=== PATIENT | female | born 1970 | race Caucasian/White ===

== ENCOUNTER 2016-08-19 11:01 | Inpatient (IN) ==
--- NOTE | 2016-08-19 11:22 | Emergency Department Note ---
Disposition Clinical Impression: Morbid obesity with BMI of 50.0-59.9, adult, Congestive heart failure Disposition: Admitted As Inpatient Condition: Good Time of Disposition: 13:18 (cedricmiguel robles) SOB HPI - General Chief Complaint: ED Shortness of Breath/Dyspnea Stated Complaint: GARY Time Seen by Provider: 08/19/16 11:08 Source: patient, EMS Mode of arrival: ambulatory Limitations: physical limitation Nursing Notes Reviewed: Yes Vital Signs Reviewed: Yes - History of Present Illness 46-year-old female increased shortness of breath despite being on BiPAP/CPAP at home states that she is nervous she is anxious she has had overt cough and congestion states that they can either a fpc now I just cannot deal with it anymore she denies diarrhea melena hematochezia or hematemesis she is a decreased activity she denies any rashes or lesions Pt Subjective Complaint: shortness of breath Onset (ago): day(s) Context: other (Chronic dyspnea has recurrent episodes seem frequently in the emergency room) Severity: moderate Consistency/Duration: constant Improves with: oxygen, bronchodilators, upright position Worsens with: nothing Known history of: COPD, asthma, congestive heart failure Treatment prior to arrival: oxygen Cough present: Yes Cough Description: Involuntary, Non-Productive, Weak, Wheezy Cough Frequency: Intermittent Sputum production: No - Related Data Home Medications Medication Instructions Recorded Confirmed Omeprazole [PriLOSEC] 20 mg PO DAILY 02/23/16 06/28/16 Oxygen 3 l NS AD 02/23/16 06/28/16 Potassium Chloride [K-Tab ER] 10 meq PO BID 02/23/16 06/28/16 Previous Rx's Medication Instructions Recorded Albuterol Neb [Proventil Neb] 2.5 mg IH Q2H PRN #60 vial.neb 01/01/16 Allopurinol [Zyloprim 100 MG] 400 mg PO DAILY #120 tablet 01/01/16 Nicotine Patch [Nicoderm] 14 mg TD DAILY #28 patch.td24 01/01/16 HYDROcodone/Acet 5/325 mg [[place] 1 tab PO Q4HR PRN #42 tablet 02/26/16 5-325 mg] MOM Conc [MILK OF MAGNESIA conc] 10 ml PO DAILY PRN #300 ud.liq 02/26/16 Magnesium Oxide [Mag-Ox] 400 mg PO BID 30 Days 02/26/16 Nystatin OINT [Mycostatin] 1 appl TP QID 21 Days 02/26/16 Sennosides/Docusate Sodium [Senna 2 each PO DAILY 30 Days 02/26/16 Plus] Budesonide/Formoterol 160/4.5 1 puff IH BIDR #1 hfa.aer.ad 04/16/16 [Symbicort 160/4.5] Bumetanide [Bumex] 1.5 mg PO BIDDIURETIC #90 tablet 05/28/16 Digoxin [Lanoxin] 0.25 mg PO DAILY #30 tablet 05/28/16 Metformin HCl [Glucophage] 1,000 mg PO BID #60 tablet 05/28/16 Metolazone [Zaroxolyn] 5 mg PO DAILY #30 tablet 05/28/16 Metoprolol [Lopressor] 25 mg PO BID #60 tablet 05/28/16 Montelukast [Singulair] 10 mg PO DAILY #30 tablet 05/28/16 Theophylline Anhydrous [Theodur] 300 mg PO BID #60 tab.er.12h 05/28/16 Tiotropium [Spiriva] 18 mcg IH DAILY #30 inh 05/28/16 Allergies Allergy/AdvReac Type Severity Reaction Status Date / Time No Known Allergies Allergy Verified 04/14/16 22:08 All systems ED: reviewed and negative except as stated. Constitutional: Reports: weakness. Denies: fever, chills Eyes: Denies: vision change ENT ED: Denies: ear pain Cardiovascular: Reports: palpitations, dyspnea on exertion, orthopnea. Denies: chest pain Respiratory: Reports: cough, dyspnea, wheezes Gastrointestinal: Denies: abdominal pain, nausea, vomiting Genitourinary: Denies: urgency Musculoskeletal: Denies: back pain Integumentary: Denies: rash Neurological: Denies: headache Psychiatric: Denies: anxiety Endocrine: Denies: fatigue Hematological/Lymphatic: Denies: easy bleeding Allergic/Immunologic: Denies: facial swelling Past Medical History - Past Medical History Attestation: Yes The following information was validated with the patient. Source: patient, old records reviewed, nursing notes reviewed Medical history: Reports: arthritis, cardiomyopathy, CHF, COPD, diabetes, GERD, hypertension, osteoporosis, peripheral artery disease, venous stasis Surgical history: Reports: herniorrhaphy, other Psychiatric history: Reports: anxiety, depression PRINT BUYER history: Reports: no PRINT BUYER history - Social History Smoking Status: Former smoker Smokeless Tobacco Status: No Alcohol use: Reports: none Drug use: Reports: none Physical Exam - General Limitations: physical limitation General appearance: alert, in no apparent distress, anxious, obese - Head Head exam: atraumatic, normocephalic, normal inspection - Eye Eye exam: Present: normal appearance, PERRL, EOMI - ENT ENT exam: normal exam, normal oropharynx, mucous membranes moist, TM's normal bilaterally, normal external ear exam - Neck Neck exam: Present: normal inspection, full ROM, trachea midline - Chest Chest inspection: Present: normal inspection, symmetric chest wall rise - Respiratory Respiratory exam: Present: normal lung sounds bilaterally - Cardiovascular Cardiovascular exam: Present: regular rate, normal rhythm, normal heart sounds - Abdominal Exam Abdominal exam: Present: soft, Non-Tender, normal bowel sounds - Extremities Exam Extremities exam: Present: normal inspection, full ROM, normal capillary refill , other (morbid obesity) - Expanded Lower Extremity Exam Neurovascular/Tendon exam: Present: normal capillary refill, normal fine/light touch Gait: observed and normal - Back Exam Back exam: Present: normal inspection, full ROM. Absent: muscle spasm - Neurological Exam Neurological exam: Present: alert, oriented X3, CN II-XII intact - Psychiatric Psychiatric exam: Present: normal affect, normal mood - Skin Skin exam: Present: warm, dry, intact, normal color Course Course Narrative: Patient was seen and examined patient was placed in a nursing care facility with contacted social work specialist will discuss further with social work specialist in regards to placement she will need at least his therapy and occupational therapy at baseline in addition to this ER for increasing shortness of breath and dyspnea is being evaluated this time Vital Signs Temperature 99.1 F 08/19/16 11:03 Pulse Rate 98 08/19/16 11:03 Respiratory Rate 16 08/19/16 11:03 Blood Pressure 152/100 08/19/16 11:03 O2 Sat by Pulse Oximetry 93 L 08/19/16 11:03 Temperature 99.1 F 08/19/16 11:03 Pulse Rate 100 08/19/16 13:21 Respiratory Rate 18 08/19/16 13:21 Blood Pressure 149/86 08/19/16 13:21 O2 Sat by Pulse Oximetry 95 08/19/16 13:21 Oxygen Delivery Oxygen Delivery Nasal Cannula Shortness of Breath/Dyspnea - Differential Diagnosis Likely: acute exacerbation of chronic obstructive airways disease, congestive heart failure, pneumonia - Medical Records Medical records reviewed: Yes I reviewed the patient's medical records. - Lab Data Lab results reviewed: Yes I reviewed the patient's lab results. Result diagrams: 08/19/16 11:40 08/19/16 11:40 Lab Results 08/19/16 08/19/16 08/19/16 Range/Units 11:40 11:40 11:40 WBC 8.2 (4.3-11.1) K/mcL RBC 3.64 L (3.82-4.97) M/mcL Hgb 10.1 L (11.5-15.4) g/dL Hct 35.3 (35.3-44.9) % MCV 97.0 D (83.0-100.0) fL MCH 27.7 L (28.0-33.3) pg MCHC 28.6 L (31.6-35.5) g/dL RDW 18.6 H (11.5-14.5) % Plt Count 180 (140-400) K/mcL MPV 10.7 (9.4-12.4) fL Immature Gran % 0.2 (0-4) % Seg Neutrophils % 77.9 % Lymphocytes % 15.0 % Monocytes % 5.9 % Eosinophils % 0.5 % Basophils % 0.5 % Neutrophils # 6.4 (1.6-8.9) K/mcL Lymphocytes # 1.2 (0.6-4.6) K/mcL Monocytes # 0.5 (0.0-1.3) K/mcL Eosinophils # 0.0 (0.0-0.6) K/mcL Basophils # 0.0 (0.0-0.2) K/mcL Platelet Estimate Normal (Normal) Hypochromasia Present A (Not Present) Anisocytosis 1+ A (Not Present) PT 14.6 H (9.4-12.1) Seconds INR 1.3 APTT 34.3 (26.0-36.0) Seconds Sodium 146 H (136-145) mEq/L Potassium 3.5 (3.5-4.5) mEq/L Chloride 88 L (98-109) mEq/L Carbon Dioxide 49 H* (19-29) mEq/L BUN 12 (7-20) mg/dL Creatinine 0.71 (0.57-1.11) mg/dL Est GFR ( Amer) > 60 (> 60) Est GFR (Non-Af Amer) > 60 (> 60) BUN/Creatinine Ratio 17 (6-26) Glucose 145 H (70-99) mg/dL Calculated Osmolality 304 H (280-300) Calcium 9.5 (8.6-10.8) mg/dL Troponin I (0-0.03) ng/mL B-Natriuretic Peptide (0-100) pg/mL 08/19/16 08/19/16 Range/Units 11:40 11:40 WBC (4.3-11.1) K/mcL RBC (3.82-4.97) M/mcL Hgb (11.5-15.4) g/dL Hct (35.3-44.9) % MCV (83.0-100.0) fL MCH (28.0-33.3) pg MCHC (31.6-35.5) g/dL RDW (11.5-14.5) % Plt Count (140-400) K/mcL MPV (9.4-12.4) fL Immature Gran % (0-4) % Seg Neutrophils % % Lymphocytes % % Monocytes % % Eosinophils % % Basophils % % Neutrophils # (1.6-8.9) K/mcL Lymphocytes # (0.6-4.6) K/mcL Monocytes # (0.0-1.3) K/mcL Eosinophils # (0.0-0.6) K/mcL Basophils # (0.0-0.2) K/mcL Platelet Estimate (Normal) Hypochromasia (Not Present) Anisocytosis (Not Present) PT (9.4-12.1) Seconds INR APTT (26.0-36.0) Seconds Sodium (136-145) mEq/L Potassium (3.5-4.5) mEq/L Chloride (98-109) mEq/L Carbon Dioxide (19-29) mEq/L BUN (7-20) mg/dL Creatinine (0.57-1.11) mg/dL Est GFR ( Amer) (> 60) Est GFR (Non-Af Amer) (> 60) BUN/Creatinine Ratio (6-26) Glucose (70-99) mg/dL Calculated Osmolality (280-300) Calcium (8.6-10.8) mg/dL Troponin I 0.01 (0-0.03) ng/mL B-Natriuretic Peptide 739 H (0-100) pg/mL - Radiology Data Radiology results reviewed: Yes I reviewed the patient's radiology results. One view portal chest x-ray as interpreted by myself shows cardiomegaly with congestive heart failure noted with minor infiltrates in the perihilar region as interpreted by myself without the assistance of radiology - EKG Data EKG attestation: Yes I reviewed and interpreted this EKG. EKG results narrative: Rhythm NSR RBBB Heart Rate 97 GA 188 QRS 127 QT 371 Axes 12 Critical Care Time Critical Care Time: No
[2016-08-19 11:45] LABS: Basophils % 0.5 %; Eosinophils % 0.5 %; Hematocrit 35.3 % (35.3-44.9); Hemoglobin 10.1 g/dL (11.5-15.4); Immature Granulocytes % 0.2 % (0-4); Lymphocytes # 1.2 K/mcL (0.6-4.6); Mean Corpuscular HGB Conc 28.6 g/dL (31.6-35.5); Mean Corpuscular Hemoglobin 27.7 pg (28.0-33.3); Mean Platelet Volume 10.7 fL (9.4-12.4); Monocytes # 0.5 K/mcL (0.0-1.3); Monocytes % 5.9 %; Neutrophils # 6.4 K/mcL (1.6-8.9); Platelet Count 180 K/mcL (140-400); Red Blood Count 3.64 M/mcL (3.82-4.97); Red Cell Distribution Width 18.6 % (11.5-14.5); Segmented Neutrophils % 77.9 %
[2016-08-19 11:51] LABS: INR 1.3; Prothrombin Time 14.6 Seconds (9.4-12.1)
[2016-08-19 11:53] LABS: Activated Partial Thrombo Time 34.3 Seconds (26.0-36.0)
[2016-08-19 12:01] LABS: BUN/Creatinine Ratio 17 (6-26); Blood Urea Nitrogen 12 mg/dL (7-20); Calcium 9.5 mg/dL (8.6-10.8); Chloride 88 mEq/L (98-109); Glucose 145 mg/dL (70-99); Osmolality,Calculated 304 (280-300); Potassium 3.5 mEq/L (3.5-4.5); Sodium 146 mEq/L (136-145); eGFR For African Americans > 60 (> 60); eGFR For Non-African Americans > 60 (> 60)
[2016-08-19 12:04] LABS: Carbon Dioxide 49 mEq/L (19-29)
[2016-08-19 12:27] LABS: Anisocytosis 1+ (Not Present); Hypochromasia Present (Not Present); Platelet Estimate Normal (Normal)
[2016-08-19] MEDS ORDERED: Ibuprofen 800 MG TABLET PO ONE (12:52)
[2016-08-19] MEDS ORDERED: Bumetanide 1 MG/4 ML VIAL IVP ONE (13:06)
[2016-08-19] MEDS ORDERED: Ipratropium/Albuterol Neb 3 ML IH ONE (13:24)
--- NOTE | 2016-08-19 14:36 | Electrocardiograph Report ---
[facility] Test Date: 2016-08-19 Pat Name: Kathy Munoz Department: [id number] Room: [facility] Gender: F Healthcare Prof: [id number] : 1970 Requested By: Niru Sharma Order Number: [id number] Reading MD: Musa Stephenson MD Measurements Intervals [place] Rate: 97 P: 55 MI: 188 QRS: 12 QRSD: 127 T: 10 QT: 371 QTc: 425 Interpretive Statements SINUS RHYTHM INDETERMINATE AXIS RIGHT BUNDLE BRANCH BLOCK Electronically Signed On 08-19-16 14:34:36 EST by Musa Stephenson MD
[2016-08-19 15:05] LABS: Bilirubin,Urine Negative (Negative); Blood,Urine Small (Negative); Clarity,Urine Clear (Clear); Color,Urine Yellow (Yellow); Glucose,Urine (UA) Normal (Normal); Ketones,Urine Negative (Negative); Leukocyte Esterase,Urine Small (Negative); Nitrite,Urine Negative (Negative); Protein,Urine 30 mg/dL (Neg-Trace); Urobilinogen,Urine Normal (Normal)
[2016-08-19] MEDS ORDERED: Naloxone 0.4 MG/ML INJ IVP PRN (15:13)
[2016-08-19 15:17] LABS: Bacteria,Urine Few per hpf (None-Few); Hyaline Casts,Urine Few per lpf (None-Few); Squamous Epithelial Cell,Urine Few per lpf (None-Few); WBC,Urine 30-50 per hpf (0-3)
[2016-08-19] MEDS: Bumetanide 1 MG/4 ML VIAL IVP SCH (18:14)
[2016-08-19] MEDS ORDERED: MOM Conc 10 ML UD.LIQ PO PRN (21:02)
[2016-08-19] MEDS: Magnesium Oxide 400 MG TABLET PO SCH (21:23)
[2016-08-19] MEDS: Budesonide/Formoterol 160/4.5 MDI IH SCH (21:24)
[2016-08-19] MEDS: Nicotine 14 MG PATCH.TD24 TD SCH (21:24)
[2016-08-19] MEDS: Albuterol 2.5 MG/3 ML NEBULIZER IH PRN (21:24)
[2016-08-19] MEDS: *HR* HYDROcodone/Acet 5/325 mg TABLET PO PRN (21:30)
[2016-08-19] MEDS: ALLOPURINOL PO SCH (21:32)
[2016-08-20] MEDS: *HR* HYDROcodone/Acet 5/325 mg TABLET PO PRN ×5 (03:40→22:32)
[2016-08-20 03:41] LABS: Basophils % 0.4 %; Eosinophils # 0.1 K/mcL (0.0-0.6); Eosinophils % 1.3 %; Hematocrit 31.7 % (35.3-44.9); Hemoglobin 9.2 g/dL (11.5-15.4); Immature Granulocytes % 0.4 % (0-4); Lymphocytes # 1.3 K/mcL (0.6-4.6); Lymphocytes % 18.5 %; Mean Corpuscular Volume 96.6 fL (83.0-100.0); Mean Platelet Volume 11.5 fL (9.4-12.4); Monocytes # 0.5 K/mcL (0.0-1.3); Monocytes % 6.3 %; Neutrophils # 5.3 K/mcL (1.6-8.9); Platelet Count 169 K/mcL (140-400); Red Blood Count 3.28 M/mcL (3.82-4.97); Red Cell Distribution Width 18.6 % (11.5-14.5); Segmented Neutrophils % 73.1 %
[2016-08-20 03:51] LABS: INR 1.3; Prothrombin Time 14.3 Seconds (9.4-12.1)
[2016-08-20 03:54] LABS: Activated Partial Thrombo Time 33.6 Seconds (26.0-36.0)
[2016-08-20 04:01] LABS: BUN/Creatinine Ratio 19 (6-26); Blood Urea Nitrogen 14 mg/dL (7-20); Calcium 9.3 mg/dL (8.6-10.8); Chloride 89 mEq/L (98-109); Glucose 180 mg/dL (70-99); Magnesium 1.8 mg/dL (1.6-2.6); Osmolality,Calculated 307 (280-300); Potassium 3.7 mEq/L (3.5-4.5); Sodium 146 mEq/L (136-145); eGFR For African Americans > 60 (> 60); eGFR For Non-African Americans > 60 (> 60)
[2016-08-20 04:06] LABS: Carbon Dioxide 48 mEq/L (19-29)
[2016-08-20] MEDS: Albuterol 2.5 MG/3 ML NEBULIZER IH PRN ×4 (04:53→22:34)
[2016-08-20 06:48] LABS: Platelet Estimate Normal (Normal)
[2016-08-20] MEDS: *HR* Digoxin 0.25 MG TABLET PO SCH (07:47)
[2016-08-20] MEDS: ALLOPURINOL PO SCH (07:48)
[2016-08-20] MEDS: *HR* Metformin 500 MG TABLET PO SCH ×2 (07:50→21:42)
[2016-08-20] MEDS: Magnesium Oxide 400 MG TABLET PO SCH ×2 (07:50→21:42)
[2016-08-20] MEDS: Sennosides/Docusate Sodium TABLET PO SCH (07:50)
[2016-08-20] MEDS: Nicotine 14 MG PATCH.TD24 TD SCH (07:50)
[2016-08-20] MEDS: Bumetanide 1 MG/4 ML VIAL IVP SCH (08:00)
[2016-08-20] MEDS ORDERED: NON-FORMULARY MEDICATION 1 EACH EACH (Oxygen [Oxygen] 3 L) NS SCH (10:00)
[2016-08-20] MEDS: Tiotropium 18 MCG inhalation IH SCH (10:03)
[2016-08-20] MEDS: Budesonide/Formoterol 160/4.5 MDI IH SCH ×2 (10:04→22:34)
[2016-08-20] MEDS ORDERED: CefTRIAXone 1,000 MG in D5% in Water (Mini-Bag+) 100 ML IVPB ONE (10:30)
[2016-08-20] MEDS: *HR* Promethazine 25 MG/ML VIAL IVP PRN ×2 (12:35→21:42)
[2016-08-20] MEDS ORDERED: Nystatin OINT 15 GM TUBE TP SCH (13:00)
[2016-08-20] MEDS: Bumetanide 1 MG TABLET PO SCH ×2 (13:29→18:13)
[2016-08-20] MEDS: Nystatin POWDER 30 GM BOTTLE TP SCH ×2 (18:14→21:44)
--- NOTE | 2016-08-20 21:51 | Internal Med History&Physical ---
Date of Encounter: 08/20/16 Time of Encounter: 21:43 Assessment and Plan (1) Congestive heart failure Current visit: Yes Status: Chronic She is short of breath high BNP with her IV Bumex follow-up labs Qualifiers: Congestive heart failure type: unspecified congestive heart failure type Congestive heart failure chronicity: acute on chronic Qualified Code(s): I50.9 - Heart failure, unspecified (2) UTI (urinary tract infection) Current visit: Yes Status: Acute Gram-negative rods into ceftriaxone follow-up labs Qualifiers: Urinary tract infection type: site unspecified Hematuria presence: without hematuria Qualified Code(s): N39.0 - Urinary tract infection, site not specified (3) COPD (chronic obstructive pulmonary disease) Current visit: No Status: Acute Continue the neb treatments theophylline Symbicort Qualifiers: Emphysema type: unspecified Qualified Code(s): J43.9 - Emphysema, unspecified (4) Bronchitis Current visit: Yes Status: Acute Coughing up sputum continue the Rocephin (5) Hypercapnia Current visit: Yes Status: Acute She needs to continue using BiPAP whenever she lays down and Nipride benefit her to use it all the time she is not ambulating (6) DM type 2 (diabetes mellitus, type 2) Current visit: Yes Status: Chronic Diabetes seems to be controlled continue metformin Qualifiers: Diabetes mellitus complication status: without complication Diabetes mellitus 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 Munoz is a 46 year old female resented emergency room with increasing shortness of breath, coughing up yellow-green sputum, she reports using neb treatments every hour and still being short of breath. She has had some pain with urination, she feels cool all the time, been nauseated. She has a history of asthma and COPD on 4 L oxygen at home but she reports her 2 sons live the wood burning stove door open which looks smokes in the house. He also smokes cigarettes. She reports having pressure in his maxillary sinuses. He has been weak and fatigued lightheaded, blurred vision, and swollen belly that is makes walking painful she reports her symptoms started about 5 days ago and she has been getting worse. He denies any fevers chills vomiting diarrhea blood in her stool rest of review systems negative. Answer questions addressed her concerns and workup in the emergency room showed normal sinus rhythm with right bundle branch block, a chest x-ray that showed some vasculature consistent with congestive heart failure also concerned about minor infiltrates in the perihilar area ER doctor. The radiologist read it as a stable chest. She had a urine culture that came back with greater than 100,000 gram-negative rods. Initial BNP was 739 which came down to 556 with Bumex her CO2 is 49 and went down to 48. He reports being in Dr. Gonzalez in [place] from 07/19- for respiratory failure. Emergency room she reported willingness to go to an extended care facility. Past Med Surg Social Fam HX - Past Medical History Medical history: arthritis (Worse in the lower back), asthma, cardiomyopathy, CHF, COPD (4 L oxygen), diabetes, GERD, hypertension, osteoporosis, peripheral artery disease, venous stasis, other (Obstructive sleep apnea on BiPAP, gallops , morbid obesity, hypercapnia) Psychiatric history: anxiety, depression - Past Surgical History Surgical History: herniorrhaphy, other - Social History Smoking Status: Former smoker Smokeless Tobacco Status: No Alcohol use: none Drug use: none - Family History Son Adopted: No Family Member Ethnicity: Non- Living Status: Still Living Hx Family Cardiac Disorders: Yes Hx Family Respiratory Disorders: Yes Hx Family Cancer: No Hx Family GI Disorders: No Hx Family Endocrine Disorder: Yes Hx Family Neuromuscular Disorders: No Hx Family Neurologic Disorders: No Hx Family HEENT Disorders: No Hx Family Autoimmune Disorders: No Father Living Status: Hx Family Cardiac Disorders: Yes (enlarged heart) Hx Family Cancer: Yes (Lung and rectal cancer) Hx Family Endocrine Disorder: Yes (diabetic) Mother Living Status: Hx Family Cardiac Disorders: Yes (stents) Hx Family GI Disorders: Yes (GI bleed) Hx Family Endocrine Disorder: Yes (diabetic) Internal Medicine - H&P: Meds Albuterol Neb [Proventil Neb] 2.5 mg IH Q2H PRN #60 vial.neb 01/01/16 [Rx] Allopurinol [Zyloprim 100 MG] 400 mg PO DAILY #120 tablet 01/01/16 [Rx] Nicotine Patch [Nicoderm] 14 mg TD DAILY #28 patch.td24 01/01/16 [Rx] Omeprazole [PriLOSEC] 20 mg PO DAILY 02/23/16 [History] Oxygen 3 l NS AD 02/23/16 [History] Potassium Chloride [K-Tab ER] 10 meq PO BID 02/23/16 [History] HYDROcodone/Acet 5/325 mg [[place] 5-325 mg] 1 tab PO Q4HR PRN #42 tablet [Rx] MOM Conc [MILK OF MAGNESIA conc] 10 ml PO DAILY PRN #300 ud.liq 02/26/16 [Rx] Magnesium Oxide [Mag-Ox] 400 mg PO BID 30 Days 02/26/16 [Rx] Nystatin OINT [Mycostatin] 1 appl TP QID 21 Days 02/26/16 [Rx] Sennosides/Docusate Sodium [Senna Plus] 2 each PO DAILY 30 Days 02/26/16 [Rx] Budesonide/Formoterol 160/4.5 [Symbicort 160/4.5] 1 puff IH BIDR #1 hfa.aer.ad 04/16/16 [Rx] Bumetanide [Bumex] 1.5 mg PO BIDDIURETIC #90 tablet 05/28/16 [Rx] Digoxin [Lanoxin] 0.25 mg PO DAILY #30 tablet 05/28/16 [Rx] Metformin HCl [Glucophage] 1,000 mg PO BID #60 tablet 05/28/16 [Rx] Metolazone [Zaroxolyn] 5 mg PO DAILY #30 tablet 05/28/16 [Rx] Metoprolol [Lopressor] 25 mg PO BID #60 tablet 05/28/16 [Rx] Montelukast [Singulair] 10 mg PO DAILY #30 tablet 05/28/16 [Rx] Theophylline Anhydrous [Theodur] 300 mg PO BID #60 tab.er.12h 05/28/16 [Rx] Tiotropium [Spiriva] 18 mcg IH DAILY #30 inh 05/28/16 [Rx] Allergies No Known Allergies Allergy (Verified 04/14/16 22:08) All Systems PM: A 10-system review of systems was performed and is negative for pertinent findings except as documented above in the HPI. - Constitutional Vitals: Temp Pulse Resp BP Pulse Ox 98.2 F 95 20 114/73 92 L 08/20/16 18:00 08/20/16 18:00 08/20/16 18:00 08/20/16 18:00 08/20/16 18:00 General appearance: Present: A&O X 2 - Head Head exam: Present: atraumatic, normocephalic - Eye Eye exam: Present: PERRL, conjuntiva pink, sclera anicteric Pupils: Present: PERRL - Neck Neck exam general surgery: Present: supple, trachea midline. Absent: lymphadenopathy - Respiratory Respiratory exam: Present: CTAB (But distant breath sounds). Absent: accessory muscle use, rales, rhonchi, wheezes - Cardiovascular Cardiovascular exam: Present: RRR, +S1, +S2. Absent: diastolic murmur, gallop, rubs, systolic murmur - GI/Abdominal GI/Abdominal exam: Present: normal bowel sounds, soft, no peritoneal signs. Absent: distended, tenderness - Extremities Exam Extremities exam: Present: pedal edema (2+), warm. Absent: calf tenderness, cyanotic - Neurological Exam Neurological exam: Present: CN II-XII intact, no focal deficits. Absent: facial droop, speech deficit - Skin Skin exam: Present: dry, intact Internal Med - H&P Results - Labs CBC & Chem 7: 08/20/16 03:30 08/20/16 03:30 Labs: Short CBC 08/20/16 Range/Units 03:30 WBC 7.2 (4.3-11.1) K/mcL Hgb 9.2 L (11.5-15.4) g/dL Hct 31.7 L (35.3-44.9) % Plt Count 169 (140-400) K/mcL Neutrophils # 5.3 (1.6-8.9) K/mcL BMP 08/20/16 03:30 Sodium 146 H Potassium 3.7 Chloride 89 L Carbon Dioxide 48 H* BUN 14 Creatinine 0.75 Glucose 180 H Calcium 9.3 Cardiac Enzymes 08/20/16 Range/Units 03:30 Troponin I 0.01 (0-0.03) ng/mL
[2016-08-21] MEDS ORDERED: Bumetanide 1 MG TABLET PO PRN (01:19)
[2016-08-21] MEDS: *HR* HYDROcodone/Acet 5/325 mg TABLET PO PRN ×4 (04:19→17:27)
[2016-08-21 05:30] LABS: ABG HCO3 52.2 mEQ/L (21-27); ABG PCO2 82 mmHg (35-45); ABG PH 7.41 pH Units (7.32-7.45); ABG PO2 63 mmHg (85-104); ABG TCO2 54.7 mEq/L (20-26)
[2016-08-21 05:31] LABS: ABG Base Excess 23.1 mEq/L (-2.0 to 3.0); ABG Oxygen Saturation 90 % (95-98); Blood Gas BiPAP(E) 12 cm H2O; Blood Gas BiPAP(I) 20 cm H2O; Blood Gas Liter Flow 4 L/MIN
[2016-08-21 05:52] LABS: Basophils % 0.5 %; Eosinophils # 0.1 K/mcL (0.0-0.6); Eosinophils % 1.8 %; Hematocrit 33.1 % (35.3-44.9); Hemoglobin 9.5 g/dL (11.5-15.4); Immature Granulocytes % 0.3 % (0-4); Lymphocytes # 1.5 K/mcL (0.6-4.6); Lymphocytes % 20.4 %; Mean Corpuscular HGB Conc 28.7 g/dL (31.6-35.5); Mean Corpuscular Hemoglobin 27.5 pg (28.0-33.3); Mean Corpuscular Volume 95.9 fL (83.0-100.0); Mean Platelet Volume 12.1 fL (9.4-12.4); Monocytes # 0.4 K/mcL (0.0-1.3); Neutrophils # 5.2 K/mcL (1.6-8.9); Platelet Count 185 K/mcL (140-400); Red Blood Count 3.45 M/mcL (3.82-4.97); Red Cell Distribution Width 18.6 % (11.5-14.5)
[2016-08-21 06:06] LABS: BUN/Creatinine Ratio 18 (6-26); Blood Urea Nitrogen 14 mg/dL (7-20); Calcium 9.7 mg/dL (8.6-10.8); Chloride 85 mEq/L (98-109); Glucose 142 mg/dL (70-99); Osmolality,Calculated 305 (280-300); Potassium 3.7 mEq/L (3.5-4.5); Sodium 146 mEq/L (136-145); eGFR For African Americans > 60 (> 60); eGFR For Non-African Americans > 60 (> 60)
[2016-08-21 06:40] LABS: Carbon Dioxide 47 mEq/L (19-29)
[2016-08-21 07:50] LABS: Anisocytosis 2+ (Not Present); Hypochromasia Present (Not Present); Platelet Estimate Normal (Normal); Polychromasia 1+ (Not Present)
[2016-08-21] MEDS: Albuterol 2.5 MG/3 ML NEBULIZER IH PRN ×4 (08:24→21:14)
[2016-08-21] MEDS: Tiotropium 18 MCG inhalation IH SCH (08:24)
[2016-08-21] MEDS: Budesonide/Formoterol 160/4.5 MDI IH SCH ×2 (08:25→21:14)
[2016-08-21] MEDS: ALLOPURINOL PO SCH (09:19)
[2016-08-21] MEDS: Magnesium Oxide 400 MG TABLET PO SCH ×2 (09:20→23:42)
[2016-08-21] MEDS: *HR* Metformin 500 MG TABLET PO SCH ×2 (09:20→23:44)
[2016-08-21] MEDS: Sennosides/Docusate Sodium TABLET PO SCH (09:21)
[2016-08-21] MEDS: *HR* Digoxin 0.25 MG TABLET PO SCH (09:21)
[2016-08-21] MEDS: Nicotine 14 MG PATCH.TD24 TD SCH (09:22)
[2016-08-21] MEDS: Bumetanide 1 MG/4 ML VIAL IVP SCH ×2 (09:23→17:27)
[2016-08-21] MEDS: *HR* Promethazine 25 MG/ML VIAL IVP PRN ×2 (09:25→18:14)
[2016-08-21] MEDS: Nystatin POWDER 30 GM BOTTLE TP SCH ×4 (12:04→23:44)
--- NOTE | 2016-08-21 18:55 | Internal Med Progress Note ---
Date of Encounter: 08/21/16 Time of Encounter: 18:52 - Assessment and plan (1) Congestive heart failure Current Visit: Yes Status: Chronic Assessment and plan: August 21. Seemed like it is slowly improving her BNP is coming down but she continues to be IV Bumex follow-up BMP and BNP change her to a regular medicine Qualifiers: Congestive heart failure type: unspecified congestive heart failure type Congestive heart failure chronicity: acute on chronic Qualified Code(s): I50.9 - Heart failure, unspecified (2) UTI (urinary tract infection) Current Visit: Yes Status: Acute Assessment and plan: August 21. Continue the Rocephin Qualifiers: Urinary tract infection type: site unspecified Hematuria presence: without hematuria Qualified Code(s): N39.0 - Urinary tract infection, site not specified (3) COPD (chronic obstructive pulmonary disease) Current Visit: No Status: Acute Assessment and plan: August 21. Seems controlled continue the neb treatments, Symbicort, theophylline Qualifiers: Emphysema type: unspecified Qualified Code(s): J43.9 - Emphysema, unspecified (4) Bronchitis Current Visit: Yes Status: Acute Assessment and plan: August 21. Slightly improving continue the Rocephin. (5) Hypercapnia Current Visit: Yes Status: Acute Assessment and plan: August 21. Slight improvement continue the BiPAP and the oxygen (6) DM type 2 (diabetes mellitus, type 2) Current Visit: Yes Status: Chronic Assessment and plan: August 21. 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 Continue BiPAP follow up the BMP (8) Morbid obesity with BMI of 50.0-59.9, adult Current Visit: Yes Status: Chronic Assessment and plan: August 21. She is having abdominal pain because of her obesity will increase the [place] to 10/325. - Time Spent With Patient 25 - 35 minutes - Subjective Interval history: 46-year-old female with a history of morbid obesity, no PDA on 4 L oxygen home, PATRICIO with BiPAP.. She presented to the emergency room with increasing shortness of breath. She is found to have acute bronchitis symptoms copy of a yellow-green sputum. Extremely short of breath. Emergency room her BNP was 739 she was given IV Bumex. She is continuing to need IV Bumex. Her BNP went down to 556 and states to 225. She reports feeling a little less short of breath but her swelling does not seem to have gone down slightly. Her feet have not been elevated above the heart range. Last the nurse to give her pillows at the bedside does not work well. She reports having abdominal pain from the swelling in the abdominal area point on her skin. She reports a 10 out 10 and with the current pain medicine gross about 7 or 8 out 10 and it is hard for her to function. Request an increased dose of narcotic. She is also becoming hypoxic even with oxygen. We will change her to on admission his tongue hypoxia and ongoing need for IV diuretics. Questions answered concerns addressed - Constitutional Vitals: Temp Pulse Resp BP Pulse Ox 98.2 F 94 18 134/65 88 L 08/21/16 15:46 08/21/16 15:46 08/21/16 17:57 08/21/16 15:46 08/21/16 17:57 General appearance: Present: A&O X 2 Exam: General: Alert and oriented, no acute distress Lungs: Clear to auscultation bilaterally without wheezing or crackles, but less distant sounds Heart: Regular rate and rythms without murmer or rubs Abdomen: Soft, large pannus, tender at the bottom skin area Extremities: 2+ edema no redness Internal Medicine: Result - Labs CBC & Chem 7: 08/21/16 04:32 08/21/16 04:32 Labs: Short CBC 08/21/16 Range/Units 04:32 WBC 7.3 (4.3-11.1) K/mcL Hgb 9.5 L (11.5-15.4) g/dL Hct 33.1 L (35.3-44.9) % Plt Count 185 (140-400) K/mcL Neutrophils # 5.2 (1.6-8.9) K/mcL BMP 08/21/16 04:32 Sodium 146 H Potassium 3.7 Chloride 85 L Carbon Dioxide 47 H* BUN 14 Creatinine 0.76 Glucose 142 H Calcium 9.7 - ABG Interpretation ABG results: ABG ABG pH 7.41 pH Units (7.32-7.45) 08/21/16 05:20 ABG pCO2 82 mmHg (35-45) H* 08/21/16 05:20 ABG pO2 63 mmHg (85-104) L 08/21/16 05:20 ABG O2 Saturation 90 % (95-98) L 08/21/16 05:20 PT/INR, D-dimer PT 14.3 Seconds (9.4-12.1) H 08/20/16 03:30 Consult Discharge Plan - Plan Referrals: Silvestre Kurtz, STRUCTURAL IRON WORKER [Primary Care Provider] - 1 week
[2016-08-21] MEDS: *HR* HYDROcodone/Acet 10/325 mg TABLET PO PRN (23:43)
[2016-08-22] MEDS: *HR* Promethazine 25 MG/ML VIAL IVP PRN ×4 (00:07→18:14)
[2016-08-22] MEDS: *HR* HYDROcodone/Acet 10/325 mg TABLET PO PRN ×4 (03:55→22:02)
[2016-08-22 06:53] LABS: Basophils % 0.6 %; Eosinophils # 0.2 K/mcL (0.0-0.6); Eosinophils % 2.1 %; Hematocrit 32.9 % (35.3-44.9); Hemoglobin 9.5 g/dL (11.5-15.4); Immature Granulocytes % 0.6 % (0-4); Lymphocytes # 1.5 K/mcL (0.6-4.6); Lymphocytes % 20.2 %; Mean Corpuscular HGB Conc 28.9 g/dL (31.6-35.5); Mean Corpuscular Hemoglobin 27.5 pg (28.0-33.3); Mean Corpuscular Volume 95.1 fL (83.0-100.0); Mean Platelet Volume 12.1 fL (9.4-12.4); Monocytes # 0.5 K/mcL (0.0-1.3); Monocytes % 6.5 %; Neutrophils # 5.1 K/mcL (1.6-8.9); Platelet Count 193 K/mcL (140-400); Red Blood Count 3.46 M/mcL (3.82-4.97); Red Cell Distribution Width 18.2 % (11.5-14.5)
[2016-08-22 07:09] LABS: BUN/Creatinine Ratio 18 (6-26); Blood Urea Nitrogen 14 mg/dL (7-20); Calcium 9.6 mg/dL (8.6-10.8); Chloride 85 mEq/L (98-109); Glucose 145 mg/dL (70-99); Osmolality,Calculated 305 (280-300); Sodium 146 mEq/L (136-145); eGFR For African Americans > 60 (> 60); eGFR For Non-African Americans > 60 (> 60)
[2016-08-22 07:12] LABS: Carbon Dioxide 46 mEq/L (19-29)
[2016-08-22 07:15] LABS: Anisocytosis 1+ (Not Present); Hypochromasia Present (Not Present)
[2016-08-22] MEDS: Albuterol 2.5 MG/3 ML NEBULIZER IH PRN ×3 (08:34→17:42)
[2016-08-22] MEDS: Budesonide/Formoterol 160/4.5 MDI IH SCH ×2 (08:35→21:12)
[2016-08-22] MEDS: Tiotropium 18 MCG inhalation IH SCH (08:35)
[2016-08-22] MEDS: Bumetanide 1 MG/4 ML VIAL IVP SCH (08:36)
[2016-08-22] MEDS: *HR* Digoxin 0.25 MG TABLET PO SCH (08:37)
[2016-08-22] MEDS: Magnesium Oxide 400 MG TABLET PO SCH ×2 (08:38→22:02)
[2016-08-22] MEDS: *HR* Metformin 500 MG TABLET PO SCH ×2 (08:38→22:03)
[2016-08-22] MEDS: Sennosides/Docusate Sodium TABLET PO SCH (08:39)
[2016-08-22] MEDS: ALLOPURINOL PO SCH (08:39)
[2016-08-22] MEDS: Nicotine 14 MG PATCH.TD24 TD SCH (10:07)
[2016-08-22] MEDS: Nystatin POWDER 30 GM BOTTLE TP SCH ×4 (10:09→22:04)
[2016-08-22] MEDS ORDERED: CefTRIAXone 1,000 MG in D5% in Water (Mini-Bag+) 100 ML IVPB SCH (12:00)
--- NOTE | 2016-08-22 13:45 | Internal Med Progress Note ---
Date of Encounter: 08/22/16 Time of Encounter: 13:38 - Assessment and plan (1) Congestive heart failure Current Visit: Yes Status: Chronic Assessment and plan: August 21. Seemed like it is slowly improving her BNP is coming down but she continues to be IV Bumex follow-up BMP and BNP change her to a regular medicine August 22. Like she got the most benefit from IV Bumex was changed to oral Bumex. Follow up a BMP and a BNP Qualifiers: Congestive heart failure type: unspecified congestive heart failure type Congestive heart failure chronicity: acute on chronic Qualified Code(s): I50.9 - Heart failure, unspecified (2) UTI (urinary tract infection) Current Visit: Yes Status: Acute Assessment and plan: August 21. Continue the Rocephin August 22. She done on Rocephin but because of a possible sinus and all went change her from Rocephin IV to Ceftin 500 twice a day Qualifiers: Urinary tract infection type: site unspecified Hematuria presence: without hematuria Qualified Code(s): N39.0 - Urinary tract infection, site not specified (3) COPD (chronic obstructive pulmonary disease) Current Visit: No Status: Acute Assessment and plan: August 21. Seems controlled continue the neb treatments, Symbicort, theophylline August 22 T neb treatment Symbicort will increase theophylline to 450 mg twice a day follow-up theophylline level Qualifiers: Emphysema type: unspecified Qualified Code(s): J43.9 - Emphysema, unspecified (4) Bronchitis Current Visit: Yes Status: Acute Assessment and plan: August 21. Slightly improving continue the Rocephin. August 22. Change Rocephin to Ceftin (5) Hypercapnia Current Visit: Yes Status: Acute Assessment and plan: August 21. Slight improvement continue the BiPAP and the oxygen August 22. Stable on oxygen and BiPAP (6) DM type 2 (diabetes mellitus, type 2) Current Visit: Yes Status: Chronic Assessment and plan: August 21. Stable continue metformin August 22. We will continue metformin Qualifiers: Diabetes mellitus complication status: without complication Diabetes mellitus alf insulin use: unspecified alf insulin use status Qualified Code(s): E11.9 - Type 2 diabetes mellitus without complications (7) PATRICIO treated with BiPAP Current Visit: Yes Status: Acute Assessment and plan: August 21. Continue BiPAP follow up the BMP August 22. BiPAP (8) Morbid obesity with BMI of 50.0-59.9, adult Current Visit: Yes Status: Chronic Assessment and plan: August 21. She is having abdominal pain because of her obesity will increase the [place] to 10/325. August 22. Has [place] for breakthrough pain throughout the abdominal pannus - Time Spent With Patient 25 - 35 minutes - Subjective Interval history: 46-year-old female with a history of morbid obesity, no PDA on 4 L oxygen home, PATRICIO with BiPAP.. She presented to the emergency room with increasing shortness of breath. She is found to have acute bronchitis symptoms copy of a yellow-green sputum. Extremely short of breath. Emergency room her BNP was 739 she was given IV Bumex. She is continuing to need IV Bumex. Her BNP went down to 556 and states to 225. She reports feeling a little less short of breath but her swelling does not seem to have gone down slightly. Her feet have not been elevated above the heart range. Last the nurse to give her pillows at the bedside does not work well. She reports having abdominal pain from the swelling in the abdominal area point on her skin. She reports a 10 out 10 and with the current pain medicine gross about 7 or 8 out 10 and it is hard for her to function. Request an increased dose of narcotic. She is also becoming hypoxic even with oxygen. We will change her to on admission his tongue hypoxia and ongoing need for IV diuretics. Questions answered concerns addressed August 22. Patient reports shortness of breath is about the same she has been having chest pain from coughing. Her BNP is slightly up to 282 from 275 so she is primarily on the most benefit from IV Bumex. We change it to 2 mg twice a day orally. Her CO2 came down to 46 O2 sats about 90% oxygen goes from 2-4 L. She is on BiPAP, short all last night. She reports having concerns about her sinuses and discussed about his nasal steroid like to try one. She talked about going home because her son has a birthday on August 29. He mentioned it to smoking environment with cigarette smoke and smoking from the wood burning stove. I think to be wiser for her to go to place there is not smoke because of her asthma. If nothing changes she goes back to her previous environment she will come back here she notes this line of thought. 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 Answer questions of some concerns. - Constitutional Vitals: Temp Pulse Resp BP Pulse Ox 97.8 F 88 16 108/71 90 L 08/22/16 11:15 08/22/16 11:15 08/22/16 11:15 08/22/16 11:15 08/22/16 11:15 Exam: General: Alert and oriented, no acute distress Lungs: Clear to auscultation bilaterally without wheezing or crackles but distant breath sounds Heart: Regular rate and rythms without murmer or rubs Abdomen: Soft, nontender, Extremities: no edema, redness Internal Medicine: Result - Labs CBC & Chem 7: 08/22/16 05:04 08/22/16 05:04 Labs: Short CBC 08/22/16 Range/Units 05:04 WBC 7.2 (4.3-11.1) K/mcL Hgb 9.5 L (11.5-15.4) g/dL Hct 32.9 L (35.3-44.9) % Plt Count 193 (140-400) K/mcL Neutrophils # 5.1 (1.6-8.9) K/mcL BMP 08/22/16 05:04 Sodium 146 H Potassium 4.0 Chloride 85 L Carbon Dioxide 46 H* BUN 14 Creatinine 0.76 Glucose 145 H Calcium 9.6 - ABG Interpretation ABG results: ABG ABG pH 7.41 pH Units (7.32-7.45) 08/21/16 05:20 ABG pCO2 82 mmHg (35-45) H* 08/21/16 05:20 ABG pO2 63 mmHg (85-104) L 08/21/16 05:20 ABG O2 Saturation 90 % (95-98) L 08/21/16 05:20 PT/INR, D-dimer PT 14.3 Seconds (9.4-12.1) H 08/20/16 03:30 Consult Discharge Plan - Plan Referrals: Silvestre Kurtz, FLOATING OPERATOR [Primary Care Provider] - 1 week
[2016-08-22] MEDS: Fluticasone Propionate Nasal 50 MCG/SPRAY BOTTLE NS SCH (13:58)
[2016-08-22] MEDS: Cefuroxime PO 250 MG TABLET PO SCH (18:07)
[2016-08-22] MEDS: Bumetanide 1 MG TABLET PO SCH (18:07)
[2016-08-23] MEDS: *HR* Promethazine 25 MG/ML VIAL IVP PRN ×3 (00:34→08:43)
[2016-08-23] MEDS: *HR* HYDROcodone/Acet 10/325 mg TABLET PO PRN ×2 (02:40→11:04)
[2016-08-23] MEDS: Cefuroxime PO 250 MG TABLET PO SCH (04:34)
[2016-08-23] MEDS: Bumetanide 1 MG TABLET PO SCH (04:34)
[2016-08-23 06:56] LABS: Basophils % 0.5 %; Eosinophils # 0.2 K/mcL (0.0-0.6); Eosinophils % 2.3 %; Hematocrit 32.5 % (35.3-44.9); Hemoglobin 9.4 g/dL (11.5-15.4); Immature Granulocytes % 0.2 % (0-4); Lymphocytes # 1.7 K/mcL (0.6-4.6); Lymphocytes % 20.4 %; Mean Corpuscular HGB Conc 28.9 g/dL (31.6-35.5); Mean Corpuscular Hemoglobin 27.5 pg (28.0-33.3); Mean Platelet Volume 12.1 fL (9.4-12.4); Monocytes # 0.5 K/mcL (0.0-1.3); Monocytes % 5.8 %; Neutrophils # 5.7 K/mcL (1.6-8.9); Platelet Count 187 K/mcL (140-400); Red Blood Count 3.42 M/mcL (3.82-4.97); Red Cell Distribution Width 18.2 % (11.5-14.5); Segmented Neutrophils % 70.8 %
[2016-08-23 07:07] LABS: BUN/Creatinine Ratio 18 (6-26); Blood Urea Nitrogen 16 mg/dL (7-20); Calcium 9.4 mg/dL (8.6-10.8); Chloride 84 mEq/L (98-109); Glucose 121 mg/dL (70-99); Osmolality,Calculated 302 (280-300); Potassium 4.1 mEq/L (3.5-4.5); Sodium 145 mEq/L (136-145); eGFR For African Americans > 60 (> 60); eGFR For Non-African Americans > 60 (> 60)
[2016-08-23 07:16] LABS: Carbon Dioxide 49 mEq/L (19-29)
[2016-08-23 07:27] LABS: Anisocytosis 1+ (Not Present)
[2016-08-23 07:28] LABS: Hypochromasia Present (Not Present); Rouleaux Present (Not Present)
[2016-08-23] MEDS ORDERED: *HR* Metformin 500 MG TABLET PO SCH (08:15)
[2016-08-23] MEDS: Sennosides/Docusate Sodium TABLET PO SCH (08:39)
[2016-08-23] MEDS: Magnesium Oxide 400 MG TABLET PO SCH (08:39)
[2016-08-23] MEDS: ALLOPURINOL PO SCH (08:40)
[2016-08-23] MEDS: *HR* Digoxin 0.25 MG TABLET PO SCH (08:42)
[2016-08-23] MEDS: Nystatin POWDER 30 GM BOTTLE TP SCH (08:51)
[2016-08-23] MEDS: Fluticasone Propionate Nasal 50 MCG/SPRAY BOTTLE NS SCH (08:51)
[2016-08-23] MEDS: Budesonide/Formoterol 160/4.5 MDI IH SCH (09:04)
[2016-08-23] MEDS: Albuterol 2.5 MG/3 ML NEBULIZER IH PRN (09:05)
[2016-08-23] MEDS ORDERED: Tiotropium 18 MCG inhalation IH SCH (10:00)
[2016-08-23 10:45] VITALS: BP 96/65
[2016-08-23] MEDS: Nicotine 14 MG PATCH.TD24 TD SCH (11:03)
--- NOTE | 2016-08-23 11:32 | Discharge Summary ---
Date of Encounter: 08/23/16 Time of Encounter: 11:20 - Discharge Diagnosis (1) Congestive heart failure Priority: Primary Status: Chronic Qualifiers: Congestive heart failure type: systolic Congestive heart failure chronicity : acute on chronic Qualified Code(s): I50.23 - Acute on chronic systolic ( congestive) heart failure (2) UTI (urinary tract infection) Priority: Secondary Status: Acute Qualifiers: Urinary tract infection type: site unspecified Hematuria presence: without hematuria Qualified Code(s): N39.0 - Urinary tract infection, site not specified - Discharge Medications Prescriptions: Bumetanide [Bumex] 2 mg PO Q12HR #120 tablet Cefuroxime PO [Ceftin] 500 mg PO Q12HR #4 tablet Lactobacillus [Culturelle] 1 each PO BID #4 cap.sprink Home Medications: Albuterol Neb [Proventil Neb] 2.5 mg IH Q2H PRN #60 vial.neb 01/01/16 [Rx] Allopurinol [Zyloprim 100 MG] 400 mg PO DAILY #120 tablet 01/01/16 [Rx] Nicotine Patch [Nicoderm] 14 mg TD DAILY #28 patch.td24 01/01/16 [Rx] Omeprazole [PriLOSEC] 20 mg PO DAILY 02/23/16 [History] Oxygen 3 l NS AD 02/23/16 [History] Potassium Chloride [K-Tab ER] 10 meq PO BID 02/23/16 [History] HYDROcodone/Acet 5/325 mg [[place] 5-325 mg] 1 tab PO Q4HR PRN #42 tablet [Rx] MOM Conc [MILK OF MAGNESIA conc] 10 ml PO DAILY PRN #300 ud.liq 02/26/16 [Rx] Magnesium Oxide [Mag-Ox] 400 mg PO BID 30 Days 02/26/16 [Rx] Nystatin OINT [Mycostatin] 1 appl TP QID 21 Days 02/26/16 [Rx] Sennosides/Docusate Sodium [Senna Plus] 2 each PO DAILY 30 Days 02/26/16 [Rx] Budesonide/Formoterol 160/4.5 [Symbicort 160/4.5] 1 puff IH BIDR #1 hfa.aer.ad 04/16/16 [Rx] Bumetanide [Bumex] 1.5 mg PO BIDDIURETIC #90 tablet 05/28/16 [Rx] Digoxin [Lanoxin] 0.25 mg PO DAILY #30 tablet 05/28/16 [Rx] Metformin HCl [Glucophage] 1,000 mg PO BID #60 tablet 05/28/16 [Rx] Metolazone [Zaroxolyn] 5 mg PO DAILY #30 tablet 05/28/16 [Rx] Metoprolol [Lopressor] 25 mg PO BID #60 tablet 05/28/16 [Rx] Montelukast [Singulair] 10 mg PO DAILY #30 tablet 05/28/16 [Rx] Theophylline Anhydrous [Theodur] 300 mg PO BID #60 tab.er.12h 05/28/16 [Rx] Tiotropium [Spiriva] 18 mcg IH DAILY #30 inh 05/28/16 [Rx] Bumetanide [Bumex] 2 mg PO Q12HR #120 tablet 08/23/16 [Rx] Cefuroxime PO [Ceftin] 500 mg PO Q12HR #4 tablet 08/23/16 [Rx] Lactobacillus [Culturelle] 1 each PO BID #4 cap.sprink 08/23/16 [Rx] Allergies/Adverse Reactions: Allergies No Known Allergies Allergy (Verified 04/14/16 22:08) Date of admission: 08/21/16 19:10 Primary care physician: Silvestre Kurtz CNP - Patient Status Disposition: Home, Self-Care Condition: Good Functional capacity at discharge: uses cane/walker Overall status at discharge: patient is progressing back to baseline - Discharge Instructions Follow Up With: Silvestre Kurtz CNP [Primary Care Provider] - 1 week - Diet and Activity Activity: resume usual activities as tolerated Diet: advance to your usual diet Hospital course: Ms. Munoz is a 46 year old female who came to emergency complaining of worsening dyspnea. Evaluation showed elevated BNP peptide and evidence of UTI. Initial orders were written by the emergency room physician. Dr. Self saw her August 20 and performed a history and physical. She was started on Rocephin empirically. Urine culture returned showing Escherichia coli and she was changed to Ceftin. Her Bumex dose was increased and her BNP peptide improved to 127. I assumed her care on August 23. When I saw her she stated her dyspnea had resolved. She declined the option to go to SNF which she had reported considering when she was in emergency room. She felt she had improved enough to return home. Her family reported she will be changing her residence from a place using wood-burning stove to a place using electric heat. She will follow with her primary care provider Silvestre Kurtz CNP within 1 week. Her Bumex dose was increased to 2 mg twice a day. She will continue on Ceftin for 2 additional days after discharge. - Time Spent with Patient Total time spent providing and/or coordinating discharge services: - Constitutional Vitals: Temp Pulse Resp BP Pulse Ox 97.8 F 95 20 96/65 93 L 08/23/16 10:42 08/23/16 10:42 08/23/16 10:42 08/23/16 10:42 08/23/16 10:42 General appearance: Present: A&O X 2 - VTE Documentation of Mechanical Device: Intermittent pneumatic compression device
== END 2016-08-23 13:50 | disposition home or self-care (01) | DRG 194 ==
LOC: EMEROOPIK 11:01 → INPPIK 11:01
PROVIDERS: ADMIT Family Medicine; ATTEND Internal Medicine

== ENCOUNTER 2016-11-27 10:59 | Inpatient (IN) ==
[2016-11-27] MEDS ORDERED: Ipratropium/Albuterol Neb 3 ML IH ONE (11:13)
[2016-11-27] MEDS ORDERED: Albuterol 2.5 MG/3 ML NEBULIZER IH ONE ×2 (11:13→13:12)
--- NOTE | 2016-11-27 11:17 | Emergency Department Note ---
Disposition Clinical Impression: COPD exacerbation, Dehydration Disposition: Admitted As Inpatient Condition: Fair Referrals: Rossana Rivers MD [Primary Care Provider] - Forms: ED Satisfaction Letter Time of Disposition: 14:38 SOB HPI - General Chief Complaint: ED Shortness of Breath/Dyspnea Stated Complaint: sob Time Seen by Provider: 11/27/16 11:10 Source: patient, EMS Mode of arrival: EMS Limitations: no limitations Nursing Notes Reviewed: Yes Vital Signs Reviewed: Yes - History of Present Illness 46-year-old white female with difficulty breathing for a week. She states she has had a cough for a week. The cough is productive of greenish sputum. She states she has felt feverish and chilled for 3-4 days, but has not documented an elevated temperature. No chest pain. She denies a runny nose or sore throat. She has had the influenza and pneumonia vaccine. She is on oxygen at 3 -1/2 L. She states that she has been out of her Bumex. She does not know if she still on digoxin. Pt Subjective Complaint: shortness of breath, cough Onset (ago): week(s) (1) Context: recent illness Severity: moderate Consistency/Duration: constant Improves with: oxygen, rest Worsens with: exertion, coughing Known history of: COPD Associated symptoms: Reports: denies other symptoms Treatment prior to arrival: oxygen, bronchodilator (DuoNeb), other (Solu-Medrol 125 mg) Cough present: Yes Cough Description: Involuntary Cough Frequency: Intermittent Sputum production: Yes Sputum Amount: Moderate Sputum Color: Green - Related Data Home oxygen amount: other (3.5 L) Home Medications Medication Instructions Recorded Confirmed Omeprazole [PriLOSEC] 20 mg PO DAILY 02/23/16 11/27/16 Oxygen 3 l NS AD 02/23/16 11/27/16 Potassium Chloride [K-Tab ER] 10 meq PO BID 02/23/16 11/27/16 Previous Rx's Medication Instructions Recorded Albuterol Neb [Proventil Neb] 2.5 mg IH Q2H PRN #60 vial.neb 01/01/16 Allopurinol [Zyloprim 100 MG] 400 mg PO DAILY #120 tablet 01/01/16 Nicotine Patch [Nicoderm] 14 mg TD DAILY #28 patch.td24 01/01/16 HYDROcodone/Acet 5/325 mg [[place] 1 tab PO Q4HR PRN #42 tablet 02/26/16 5-325 mg] MOM Conc [MILK OF MAGNESIA conc] 10 ml PO DAILY PRN #300 ud.liq 02/26/16 Magnesium Oxide [Mag-Ox] 400 mg PO BID 30 Days 02/26/16 Nystatin OINT [Mycostatin] 1 appl TP QID 21 Days 02/26/16 Sennosides/Docusate Sodium [Senna 2 each PO DAILY 30 Days 02/26/16 Plus] Budesonide/Formoterol 160/4.5 1 puff IH BIDR #1 hfa.aer.ad 04/16/16 [Symbicort 160/4.5] Bumetanide [Bumex] 1.5 mg PO BIDDIURETIC #90 tablet 05/28/16 Metformin HCl [Glucophage] 1,000 mg PO BID #60 tablet 05/28/16 Metolazone [Zaroxolyn] 5 mg PO DAILY #30 tablet 05/28/16 Metoprolol [Lopressor] 25 mg PO BID #60 tablet 05/28/16 Montelukast [Singulair] 10 mg PO DAILY #30 tablet 05/28/16 Theophylline Anhydrous [Theodur] 300 mg PO BID #60 tab.er.12h 05/28/16 Tiotropium [Spiriva] 18 mcg IH DAILY #30 inh 05/28/16 Bumetanide [Bumex] 2 mg PO Q12HR #120 tablet 08/23/16 Lactobacillus [Culturelle] 1 each PO BID #4 cap.sprink 08/23/16 Allergies Allergy/AdvReac Type Severity Reaction Status Date / Time No Known Allergies Allergy Verified 04/14/16 22:08 All systems ED: reviewed and negative except as stated. Constitutional: Reports: fever (Subjective), chills Eyes: Denies: eye discharge ENT ED: Denies: ear pain, throat pain Cardiovascular: Denies: chest pain Respiratory: Reports: cough, dyspnea, wheezes, sputum production. Denies: hemoptysis Gastrointestinal: Denies: abdominal pain, nausea, vomiting Genitourinary: Denies: urgency, dysuria, frequency Musculoskeletal: Denies: back pain, neck pain Integumentary: Denies: rash Neurological: Denies: headache, weakness, numbness, paresthesias Past Medical History - Past Medical History Medical history: Reports: arthritis, asthma, cardiomyopathy, CHF, COPD, diabetes , GERD, hypertension, osteoporosis, peripheral artery disease, venous stasis, other Surgical history: Reports: herniorrhaphy, other Psychiatric history: Reports: anxiety, depression PUBLIC RECORDS OFFICER history: Reports: no PUBLIC RECORDS OFFICER history - Social History Smoking Status: Former smoker Smokeless Tobacco Status: No Alcohol use: Reports: none Drug use: Reports: none Physical Exam - General Limitations: no limitations General appearance: alert, in distress (Moderately dyspneic) - Head Head exam: atraumatic, normocephalic - Eye Eye exam: Present: PERRL, EOMI. Absent: scleral icterus, conjunctival injection - ENT ENT exam: normal oropharynx, mucous membranes moist, TM's normal bilaterally - Neck Neck exam: Present: normal inspection, full ROM, trachea midline. Absent: tenderness, lymphadenopathy - Chest Chest inspection: Present: normal inspection, symmetric chest wall rise - Respiratory Respiratory exam: Present: respiratory distress (Moderately dyspneic), wheezes ( Mild, bilateral, expiratory, diffuse.), accessory muscle use, prolonged expiratory phase, other (Decreased breath sounds in the bases to midlung field posteriorly) - Cardiovascular Cardiovascular exam: Present: regular rate, tachycardia. Absent: systolic murmur, diastolic murmur, gallop - Abdominal Exam Abdominal exam: Present: soft, Non-Tender, normal bowel sounds, other (Obese). Absent: distention - Extremities Exam Extremities exam: Present: normal inspection, full ROM, normal capillary refill. Absent: pedal edema, calf tenderness - Neurological Exam Neurological exam: Present: alert, oriented X3. Absent: motor sensory deficit - Psychiatric Psychiatric exam: Present: normal affect, normal mood - Skin Skin exam: Present: warm, dry, intact, normal color. Absent: cyanosis, diaphoresis, pallor Course - Reevaluation(s) Reevaluation #1: Patient is improving. Her heart rate is trending down with the IV fluids. I believe this is a sinus tachycardia as opposed to an atrial flutter. She is significantly sock drier than her baseline. Her BUNs normally in the mid teens with a normal creatinine. Both are elevated today significantly. I am going to give her another 500 mL bolus and a repeat hand-held nebulizer. Time: 13:13 Reevaluation #2: Hydration of a liter of saline had some impact on her heart rate, I took it down from the low 140s to the low 130s. I did a second EKG to see if it still look like a sinus tachycardia versus atrial flutter. I believe it is a sinus tachycardia but I cannot rule out an atrial flutter. I did give her 20 mg of Cardizem IV. This took her heart rate from 1:30 down to 120, still looks like a sinus tachycardia. In light of the fact that her baseline BUNs in the mid teens, and today it is 41 I think there is a significant component of dehydration and I think this is most likely a sinus tachycardia. I spoke with Dr. Sutherland. Were going to admit her and slowly rehydrate her. I started her on BiPAP since she uses it at home and she is oxygenating at 90-92% and tolerating it well. I think her shortness of breath as a COPD exacerbation. I do not see any overt failure on her chest x-ray. See no evidence of pneumonia. Time: 14:35 Vital Signs Temperature 98.0 F 11/27/16 11:06 Pulse Rate 141 11/27/16 11:06 Respiratory Rate 33 11/27/16 11:06 Blood Pressure 106/69 11/27/16 11:06 O2 Sat by Pulse Oximetry 86 11/27/16 11:06 Temperature 98.0 F 11/27/16 14:03 Pulse Rate 119 11/27/16 14:30 Respiratory Rate 18 11/27/16 14:30 Blood Pressure 124/60 11/27/16 14:30 O2 Sat by Pulse Oximetry 91 11/27/16 14:30 Oxygen Delivery Oxygen Delivery Bipap Shortness of Breath/Dyspnea - MDM Narrative Medical decision making narrative: Differential includes but is not limited to influenza, pneumonia, congestive heart failure, COPD exacerbation, bronchitis with bronchospasm, pneumothorax, pleural effusion, pulmonary embolus. - Lab Data Lab results reviewed: Yes I reviewed the patient's lab results. Result diagrams: 11/27/16 11:24 11/27/16 11:24 Lab Results 11/27/16 11/27/16 11/27/16 Range/Units 11:24 11:24 11:24 WBC 11.0 (4.3-11.1) K/mcL RBC 3.59 L (3.82-4.97) M/mcL Hgb 10.6 L (11.5-15.4) g/dL Hct 35.8 (35.3-44.9) % MCV 99.7 (83.0-100.0) fL MCH 29.5 (28.0-33.3) pg MCHC 29.6 L (31.6-35.5) g/dL RDW 16.9 H (11.5-14.5) % Plt Count 210 (140-400) K/mcL MPV 11.4 (9.4-12.4) fL Immature Gran % 1.2 (0-4) % Seg Neutrophils % 71.9 % Lymphocytes % 19.1 % Monocytes % 7.1 % Eosinophils % 0.2 % Basophils % 0.5 % Neutrophils # 7.9 (1.6-8.9) K/mcL Lymphocytes # 2.1 (0.6-4.6) K/mcL Monocytes # 0.8 (0.0-1.3) K/mcL Eosinophils # 0.0 (0.0-0.6) K/mcL Basophils # 0.1 (0.0-0.2) K/mcL Nucleated RBCs/100 WBC 0.7 H (0) /100 WBC PT (9.4-12.1) Seconds INR VBG Lactic Acid (0.5-2.2) mmol/L Sodium 139 (136-145) mEq/L Potassium 5.1 H (3.5-4.5) mEq/L Chloride 93 L (98-109) mEq/L Carbon Dioxide 30 H (19-29) mEq/L BUN 43 H (7-20) mg/dL Creatinine 2.19 H (0.57-1.11) mg/dL Est GFR ( Amer) 30 L (> 60) Est GFR (Non-Af Amer) 24 L (> 60) BUN/Creatinine Ratio 20 (6-26) Glucose 160 H (70-99) mg/dL Calculated Osmolality 302 H (280-300) Calcium 9.5 (8.6-10.8) mg/dL Total Bilirubin 0.4 (0.2-1.2) mg/dL AST 13 (5-34) Units/L ALT 13 (0-55) Units/L Alkaline Phosphatase 141 H (38-126) Units/L Troponin I 0.02 (0-0.03) ng/mL B-Natriuretic Peptide (0-100) pg/mL Serum Total Protein 7.7 (6.0-8.3) g/dL Albumin 3.0 L (3.5-5.0) g/dL Globulin 4.7 H (2.4-3.5) g/dL Albumin/Globulin Ratio 0.6 L (1.1-2.2) Digoxin (0.8-2.0) ng/mL 11/27/16 11/27/16 11/27/16 Range/Units 11:24 11:24 11:24 WBC (4.3-11.1) K/mcL RBC (3.82-4.97) M/mcL Hgb (11.5-15.4) g/dL Hct (35.3-44.9) % MCV (83.0-100.0) fL MCH (28.0-33.3) pg MCHC (31.6-35.5) g/dL RDW (11.5-14.5) % Plt Count (140-400) K/mcL MPV (9.4-12.4) fL Immature Gran % (0-4) % Seg Neutrophils % % Lymphocytes % % Monocytes % % Eosinophils % % Basophils % % Neutrophils # (1.6-8.9) K/mcL Lymphocytes # (0.6-4.6) K/mcL Monocytes # (0.0-1.3) K/mcL Eosinophils # (0.0-0.6) K/mcL Basophils # (0.0-0.2) K/mcL Nucleated RBCs/100 WBC (0) /100 WBC PT 14.6 H (9.4-12.1) Seconds INR 1.3 VBG Lactic Acid 2.1 (0.5-2.2) mmol/L Sodium (136-145) mEq/L Potassium (3.5-4.5) mEq/L Chloride (98-109) mEq/L Carbon Dioxide (19-29) mEq/L BUN (7-20) mg/dL Creatinine (0.57-1.11) mg/dL Est GFR ( Amer) (> 60) Est GFR (Non-Af Amer) (> 60) BUN/Creatinine Ratio (6-26) Glucose (70-99) mg/dL Calculated Osmolality (280-300) Calcium (8.6-10.8) mg/dL Total Bilirubin (0.2-1.2) mg/dL AST (5-34) Units/L ALT (0-55) Units/L Alkaline Phosphatase (38-126) Units/L Troponin I (0-0.03) ng/mL B-Natriuretic Peptide 498 H (0-100) pg/mL Serum Total Protein (6.0-8.3) g/dL Albumin (3.5-5.0) g/dL Globulin (2.4-3.5) g/dL Albumin/Globulin Ratio (1.1-2.2) Digoxin (0.8-2.0) ng/mL 11/27/16 Range/Units 11:24 WBC (4.3-11.1) K/mcL RBC (3.82-4.97) M/mcL Hgb (11.5-15.4) g/dL Hct (35.3-44.9) % MCV (83.0-100.0) fL MCH (28.0-33.3) pg MCHC (31.6-35.5) g/dL RDW (11.5-14.5) % Plt Count (140-400) K/mcL MPV (9.4-12.4) fL Immature Gran % (0-4) % Seg Neutrophils % % Lymphocytes % % Monocytes % % Eosinophils % % Basophils % % Neutrophils # (1.6-8.9) K/mcL Lymphocytes # (0.6-4.6) K/mcL Monocytes # (0.0-1.3) K/mcL Eosinophils # (0.0-0.6) K/mcL Basophils # (0.0-0.2) K/mcL Nucleated RBCs/100 WBC (0) /100 WBC PT (9.4-12.1) Seconds INR VBG Lactic Acid (0.5-2.2) mmol/L Sodium (136-145) mEq/L Potassium (3.5-4.5) mEq/L Chloride (98-109) mEq/L Carbon Dioxide (19-29) mEq/L BUN (7-20) mg/dL Creatinine (0.57-1.11) mg/dL Est GFR ( Amer) (> 60) Est GFR (Non-Af Amer) (> 60) BUN/Creatinine Ratio (6-26) Glucose (70-99) mg/dL Calculated Osmolality (280-300) Calcium (8.6-10.8) mg/dL Total Bilirubin (0.2-1.2) mg/dL AST (5-34) Units/L ALT (0-55) Units/L Alkaline Phosphatase (38-126) Units/L Troponin I (0-0.03) ng/mL B-Natriuretic Peptide (0-100) pg/mL Serum Total Protein (6.0-8.3) g/dL Albumin (3.5-5.0) g/dL Globulin (2.4-3.5) g/dL Albumin/Globulin Ratio (1.1-2.2) Digoxin < 0.3 L (0.8-2.0) ng/mL - Radiology Data Radiology results reviewed: Yes I reviewed the patient's radiology results. ITS Impressions Chest X-Ray 11/27/16 11:13 IMPRESSION: Vascular congestion. D/ / 11/27/2016 12:39:46 Everardo Casey MD / shelbie Interpreting Provider: Everardo Casey MD - EKG Data EKG attestation: Yes I reviewed and interpreted this EKG. EKG results narrative: EKG #1: Sinus tachycardia with frequent unifocal PVCs, cannot rule out atrial flutter. MI interval of 124 ms, QRS 116 ms with an incomplete right bundle branch block. EKG #2 tachycardia, rate of 142, probable sinus tachycardia versus atrial flutter. Right bundle branch block. Not changed from her previous EKG approximately 3 hours ago
[2016-11-27 11:31] LABS: Basophils # 0.1 K/mcL (0.0-0.2); Basophils % 0.5 %; Eosinophils % 0.2 %; Hematocrit 35.8 % (35.3-44.9); Hemoglobin 10.6 g/dL (11.5-15.4); Immature Granulocytes % 1.2 % (0-4); Lymphocytes # 2.1 K/mcL (0.6-4.6); Lymphocytes % 19.1 %; Mean Corpuscular HGB Conc 29.6 g/dL (31.6-35.5); Mean Corpuscular Hemoglobin 29.5 pg (28.0-33.3); Mean Corpuscular Volume 99.7 fL (83.0-100.0); Mean Platelet Volume 11.4 fL (9.4-12.4); Monocytes # 0.8 K/mcL (0.0-1.3); Monocytes % 7.1 %; Neutrophils # 7.9 K/mcL (1.6-8.9); Nucleated Red Blood Cells 0.7 /100 WBC (0); Platelet Count 210 K/mcL (140-400); Red Blood Count 3.59 M/mcL (3.82-4.97); Red Cell Distribution Width 16.9 % (11.5-14.5); Segmented Neutrophils % 71.9 %
[2016-11-27 11:36] LABS: INR 1.3; Prothrombin Time 14.6 Seconds (9.4-12.1)
[2016-11-27 11:46] LABS: Albumin/Globulin Ratio 0.6 (1.1-2.2); Bilirubin,Total 0.4 mg/dL (0.2-1.2); Calcium 9.5 mg/dL (8.6-10.8); Globulin 4.7 g/dL (2.4-3.5); Potassium 5.1 mEq/L (3.5-4.5); Total Protein 7.7 g/dL (6.0-8.3)
[2016-11-27] MEDS ORDERED: Ondansetron 4 MG/2 ML VIAL IVP ONE (12:21)
[2016-11-27] MEDS ORDERED: 0.9 % Sodium Chloride 500 ML IVC ONE ×2 (12:29→13:12)
[2016-11-27] MEDS ORDERED: 0.9 % Sodium Chloride 1,000 ML IVC SCH (15:10)
[2016-11-27] MEDS ORDERED: MethylPREDNISolone 40 MG/ML VIAL IVP ONE (15:10)
[2016-11-27] MEDS ORDERED: Naloxone 0.4 MG/ML INJ IVP PRN (15:10)
[2016-11-27] MEDS ORDERED: MOM Conc 10 ML UD.LIQ PO PRN (15:10)
[2016-11-27] MEDS ORDERED: *HR* Metformin 500 MG TABLET PO SCH (17:00)
--- NOTE | 2016-11-27 18:42 | Internal Med History&Physical ---
Date of Encounter: 11/27/16 Time of Encounter: 18:20 Assessment and Plan (1) Acute on chronic renal failure Current visit: No Status: Acute Diuretics have been held and IV fluids ordered. Follow-up labs will be done in a.m. (2) Congestive heart failure Current visit: No Status: Chronic Will continue Lopressor but hold Bumex, potassium, and Zaroxolyn. Recheck labs in a.m. Qualifiers: Congestive heart failure type: systolic Congestive heart failure chronicity : acute on chronic Qualified Code(s): I50.23 - Acute on chronic systolic ( congestive) heart failure (3) Hyperuricemia Current visit: No Status: Chronic Check uric acid level in a.m. (4) DM type 2 (diabetes mellitus, type 2) Current visit: No Status: Chronic We will check hemoglobin A1c in a.m. We will hold Glucophage because of impaired renal function. 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 Munoz is a 46 year old female came to emergency room complaining of increasing dyspnea and cough over the past week. She reports producing greenish sputum but denies hemoptysis. She was evaluated emergency room and felt to have exacerbation of COPD and acute renal failure. She was admitted to [facility] floor for ongoing care needs. She has been hospitalized at [facility] and [facility] several times in the past years with dyspnea. Her most recent [facility] hospitalization was August 2016. She states she smoked from age 12 until November 2015. She smoked up to 4 packs per day. She has been diagnosed with COPD with PFTs done approximately 2007. She wears oxygen by nasal cannula 24/7 at 2 L/m and uses CPAP at bedtime for PATRICIO at settings of 18/14. Her most recent chest CT was 02/06/2016. Past Med Surg Social Fam HX - Past Medical History Medical history: arthritis, asthma, cardiomyopathy, CHF, COPD, diabetes, GERD, hypertension, osteoporosis, peripheral artery disease, venous stasis, other Psychiatric history: anxiety, depression - Past Surgical History Surgical History: herniorrhaphy, other - Social History Smoking Status: Former smoker Smokeless Tobacco Status: No Alcohol use: none Drug use: marijuana - Family History Son Adopted: No Family Member Ethnicity: Non- Living Status: Still Living Hx Family Cardiac Disorders: Yes Hx Family Respiratory Disorders: Yes Hx Family Cancer: No Hx Family GI Disorders: No Hx Family Endocrine Disorder: Yes Hx Family Neuromuscular Disorders: No Hx Family Neurologic Disorders: No Hx Family HEENT Disorders: No Hx Family Autoimmune Disorders: No Father Living Status: Hx Family Cardiac Disorders: Yes (enlarged heart) Hx Family Cancer: Yes (Lung and rectal cancer) Hx Family Endocrine Disorder: Yes (diabetic) Mother Living Status: Hx Family Cardiac Disorders: Yes (stents) Hx Family GI Disorders: Yes (GI bleed) Hx Family Endocrine Disorder: Yes (diabetic) Internal Medicine - H&P: Meds Albuterol Neb [Proventil Neb] 2.5 mg IH Q2H PRN #60 vial.neb 01/01/16 [Rx] Allopurinol [Zyloprim 100 MG] 400 mg PO DAILY #120 tablet 01/01/16 [Rx] Nicotine Patch [Nicoderm] 14 mg TD DAILY #28 patch.td24 01/01/16 [Rx] Omeprazole [PriLOSEC] 20 mg PO DAILY 02/23/16 [History] Oxygen 3 l NS AD 02/23/16 [History] Potassium Chloride [K-Tab ER] 10 meq PO BID 02/23/16 [History] HYDROcodone/Acet 5/325 mg [Chandler 5-325 mg] 1 tab PO Q4HR PRN #42 tablet [Rx] MOM Conc [MILK OF MAGNESIA conc] 10 ml PO DAILY PRN #300 ud.liq 02/26/16 [Rx] Magnesium Oxide [Mag-Ox] 400 mg PO BID 30 Days 02/26/16 [Rx] Nystatin OINT [Mycostatin] 1 appl TP QID 21 Days 02/26/16 [Rx] Sennosides/Docusate Sodium [Senna Plus] 2 each PO DAILY 30 Days 02/26/16 [Rx] Budesonide/Formoterol 160/4.5 [Symbicort 160/4.5] 1 puff IH BIDR #1 hfa.aer.ad 04/16/16 [Rx] Bumetanide [Bumex] 1.5 mg PO BIDDIURETIC #90 tablet 10/28/16 [Rx] Metformin HCl [Glucophage] 1,000 mg PO BID #60 tablet 05/28/16 [Rx] Metolazone [Zaroxolyn] 5 mg PO DAILY #30 tablet 05/28/16 [Rx] Metoprolol [Lopressor] 25 mg PO BID #60 tablet 05/28/16 [Rx] Montelukast [Singulair] 10 mg PO DAILY #30 tablet 05/28/16 [Rx] Theophylline Anhydrous [Theodur] 300 mg PO BID #60 tab.er.12h 05/28/16 [Rx] Tiotropium [Spiriva] 18 mcg IH DAILY #30 inh 05/28/16 [Rx] Bumetanide [Bumex] 2 mg PO Q12HR #120 tablet 08/23/16 [Rx] Lactobacillus [Culturelle] 1 each PO BID #4 cap.sprink 08/23/16 [Rx] Allergies No Known Allergies Allergy (Verified 04/14/16 22:08) All Systems PM: A 10-system review of systems was performed and is negative for pertinent findings except as documented above in the HPI. Review of systems: Gen.: Her weight decreased from 136.95 kg at the March 2014 [facility] hospitalization to 111.13 kg now Cardiovascular: She denies NH hypertension heart failure DVT or pulmonary embolus. She claims she had a heart catheterization 2006 at [facility] which was unremarkable. She had an echocardiogram during her January 2016 [facility] stay which showed LVEF of 40%. There was indeterminant diastolic function seen. There was elevated RVSP estimate of 54 mmHg. There was weyu-bo-lobwfeet tricuspid regurgitation. Respiratory: As per history of present illness GI: She has GERD but denies disorders of her liver or exocrine pancreas. She had abdominal CT scan done during her [facility] stay January 2016 which showed diverticulosis and cholelithiasis without cholecystitis. : No history of hematuria dysuria or kidney stones. 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 Her creatinine was sero-0.89 with a stated GFR greater than 60 on 08/23/2016. Creatinine was 2.19 emergency room today. Neurologic: No history of large distribution strokes or seizures Endocrine: She was diagnosed with DM 2 approximately 1993. She has hyperlipidemia but cannot tolerate statin drugs. She denies thyroid disease. Hematology/oncology: No history of blood disorders cancers or anemia Psychiatric: She has anxiety and depression and follows at mental health clinic [place] skeletal: She has no significant arthritis gout or osteoporosis. She does complain of chronic low back pain - Constitutional Vitals: Temp Pulse Resp BP Pulse Ox 98.4 F 122 12 92/63 100 11/27/16 15:26 11/27/16 15:26 11/27/16 17:31 11/27/16 15:26 11/27/16 17:31 Exam: Gen.: She is a well-developed obese female sitting on the side of the bed who appears in minimal distress at present time. HEENT: Head is atraumatic and normocephalic. She is wearing a BiPAP mask. Eyes : EOMI. There is no scleral icterus. Mouth: Mucosa is moist. Neck: Supple and nontender. There is no thyromegaly or adenopathy noted. Heart: Regular without murmurs gallops or ectopics. Lungs: She has diminished breath sounds diffusely. No wheezes or crackles are heard. Abdomen: She has a large abdomen. No masses or guarding noted. Exam is limited because she is in the seated position. Extremities: There is no cyanosis edema or clubbing noted. Dorsalis pedis and posterior tibial pulses are trace -1+ palpable bilaterally. Neurologic: Mental status: She is unable to answer a few questions but conversation is limited because of the use of BiPAP. Cranial nerves: Smile is symmetric. Forehead wrinkles bilaterally. Tongue protrudes midline. EOMI. Motor: There is no pronator drift. Cerebellar: Finger to nose is intact bilaterally. Skin: Warm and dry Internal Med - H&P Results - Labs CBC & Chem 7: 11/27/16 11:24 11/27/16 11:24
[2016-11-27] MEDS: Nystatin OINT 15 GM TUBE TP SCH ×2 (19:01→22:26)
[2016-11-27] MEDS: Ondansetron 4 MG/2 ML VIAL IVP PRN (19:01)
[2016-11-27] MEDS: Albuterol 2.5 MG/3 ML NEBULIZER IH PRN (20:36)
[2016-11-27] MEDS ORDERED: Magnesium Oxide 400 MG TABLET PO SCH (21:00)
[2016-11-27] MEDS: Lactobacillus 1 EACH CAP.SPRINK PO SCH (22:24)
[2016-11-27] MEDS: *HR* HYDROcodone/Acet 5/325 mg TABLET PO PRN (22:25)
[2016-11-28] MEDS: Ondansetron 4 MG/2 ML VIAL IVP PRN ×4 (01:25→16:15)
[2016-11-28] MEDS ORDERED: *HR* Enoxaparin 40 MG/0.4 ML SYRINGE SQ SCH (06:00)
[2016-11-28 06:38] LABS: Basophils % 0.3 %; Hematocrit 35.8 % (35.3-44.9); Hemoglobin 10.6 g/dL (11.5-15.4); Immature Granulocytes % 2.2 % (0-4); Lymphocytes # 0.7 K/mcL (0.6-4.6); Lymphocytes % 6.8 %; Mean Corpuscular HGB Conc 29.6 g/dL (31.6-35.5); Mean Corpuscular Hemoglobin 29.4 pg (28.0-33.3); Mean Corpuscular Volume 99.4 fL (83.0-100.0); Mean Platelet Volume 11.4 fL (9.4-12.4); Monocytes # 0.3 K/mcL (0.0-1.3); Monocytes % 3.1 %; Neutrophils # 9.4 K/mcL (1.6-8.9); Platelet Count 237 K/mcL (140-400); Red Cell Distribution Width 16.7 % (11.5-14.5); Segmented Neutrophils % 87.6 %
[2016-11-28 06:54] LABS: Calcium 9.6 mg/dL (8.6-10.8); Potassium 6.3 mEq/L (3.5-4.5)
[2016-11-28 06:55] LABS: Magnesium 1.9 mg/dL (1.6-2.6); Uric Acid 8.4 mg/dL (2.6-6.0)
[2016-11-28] MEDS: Albuterol 2.5 MG/3 ML NEBULIZER IH PRN ×2 (08:07→16:20)
[2016-11-28] MEDS: Lactobacillus 1 EACH CAP.SPRINK PO SCH (09:25)
[2016-11-28] MEDS: Sennosides/Docusate Sodium TABLET PO SCH (09:27)
[2016-11-28] MEDS: Nystatin OINT 15 GM TUBE TP SCH ×4 (09:28→20:39)
--- NOTE | 2016-11-28 11:13 | Internal Med Progress Note ---
Date of Encounter: 11/28/16 Time of Encounter: 11:00 - Assessment and plan (1) Acute on chronic renal failure Current Visit: No Status: Acute Assessment and plan: November 28. Continue to withhold diuretics and give IV fluids. We will check abdominal/pelvic CT to evaluate kidneys and abdominal pain. (2) Congestive heart failure Current Visit: No Status: Chronic Assessment and plan: November 28. Continue Lopressor but hold potassium, Bumex, and Zaroxolyn. Recheck labs in a.m. Qualifiers: Congestive heart failure type: systolic Congestive heart failure chronicity : acute on chronic Qualified Code(s): I50.23 - Acute on chronic systolic ( congestive) heart failure (3) Hyperuricemia Current Visit: No Status: Chronic Assessment and plan: November 28. Uric acid elevated at 8.4. Continue allopurinol and IV fluids and withholding diuretics. (4) DM type 2 (diabetes mellitus, type 2) Current Visit: No Status: Chronic Assessment and plan: November 28. Hemoglobin A1c is pending. Continue withholdig Glucophage. Qualifiers: Diabetes mellitus complication status: without complication Diabetes mellitus terminal system operator insulin use: unspecified terminal system operator insulin use status Qualified Code(s): E11.9 - Type 2 diabetes mellitus without complications (5) Neutrophilia Current Visit: Yes Status: Acute Assessment and plan: November 28. WBC remains normal at 10.7 but segs have increased to 87.6%. Will do abdominal CT and start her on IV Flagyl and Cipro. Recheck labs in a.m. - Subjective Interval history: November 28. She complains of abdominal discomfort - Constitutional Vitals: Temp Pulse Resp BP Pulse Ox 96.7 F L 112 17 76/51 96 11/28/16 04:29 11/28/16 07:26 11/28/16 08:10 11/28/16 07:26 11/28/16 08:10 Exam: She is sitting on the side of the bed wearing oxygen by mask without BiPAP. Her lungs are clear. Abdomen is soft and nontender to palpation with exam limited because she is in the seated position. Extremities show no edema. Reviewed her medications and lab results. Internal Medicine: Result - Labs CBC & Chem 7: 11/28/16 05:33 11/28/16 05:33 Labs: Short CBC 11/28/16 Range/Units 05:33 WBC 10.7 (4.3-11.1) K/mcL Hgb 10.6 L (11.5-15.4) g/dL Hct 35.8 (35.3-44.9) % Plt Count 237 (140-400) K/mcL Neutrophils # 9.4 H (1.6-8.9) K/mcL BMP 11/28/16 05:33 Sodium 135 L Potassium 6.3 H D Chloride 92 L Carbon Dioxide 28 BUN 52 H Creatinine 3.16 H Glucose 170 H Calcium 9.6 - ABG Interpretation ABG results: PT/INR, D-dimer PT 14.6 Seconds (9.4-12.1) H 11/27/16 11:24 Consult Discharge Plan - Plan Instructions: Chronic Obstructive Pulmonary Disease (DC)
[2016-11-28] MEDS: MetroNIDAZOLE 500 MG/100 ML 500 MG/100 ML BAG IVPB SCH ×2 (14:25→20:46)
[2016-11-28 17:47] LABS: Hemoglobin A1C 5.4 %
--- NOTE | 2016-11-28 17:52 | Electrocardiograph Report ---
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
--- NOTE | 2016-11-28 17:52 | Electrocardiograph Report ---
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
[2016-11-28] MEDS: Prochlorperazine 10 MG/2 ML VIAL IVP PRN (20:39)
[2016-11-29] MEDS: Ondansetron 4 MG/2 ML VIAL IVP PRN ×3 (00:15→21:10)
[2016-11-29] MEDS: Lactobacillus 1 EACH CAP.SPRINK PO SCH ×3 (02:18→20:34)
[2016-11-29] MEDS: Prochlorperazine 10 MG/2 ML VIAL IVP PRN ×3 (02:30→13:48)
[2016-11-29 05:33] LABS: Eosinophils % 0.1 %; Hematocrit 31.1 % (35.3-44.9); Hemoglobin 9.6 g/dL (11.5-15.4); Immature Granulocytes % 1.1 % (0-4); Lymphocytes # 0.8 K/mcL (0.6-4.6); Lymphocytes % 9.4 %; Mean Corpuscular HGB Conc 30.9 g/dL (31.6-35.5); Mean Corpuscular Hemoglobin 29.4 pg (28.0-33.3); Mean Corpuscular Volume 95.4 fL (83.0-100.0); Mean Platelet Volume 11.1 fL (9.4-12.4); Monocytes # 0.4 K/mcL (0.0-1.3); Neutrophils # 6.9 K/mcL (1.6-8.9); Nucleated Red Blood Cells 0.9 /100 WBC (0); Platelet Count 183 K/mcL (140-400); Red Blood Count 3.26 M/mcL (3.82-4.97); Red Cell Distribution Width 16.4 % (11.5-14.5); Segmented Neutrophils % 84.4 %
[2016-11-29 05:56] LABS: Albumin 2.9 g/dL (3.5-5.0); Albumin/Globulin Ratio 0.7 (1.1-2.2); Bilirubin,Total 0.4 mg/dL (0.2-1.2); Calcium 8.5 mg/dL (8.6-10.8); Globulin 3.9 g/dL (2.4-3.5); Potassium 6.4 mEq/L (3.5-4.5); Total Protein 6.8 g/dL (6.0-8.3)
[2016-11-29] MEDS: MetroNIDAZOLE 500 MG/100 ML 500 MG/100 ML BAG IVPB SCH ×3 (05:57→20:34)
[2016-11-29] MEDS: *HR* Enoxaparin 30 MG/0.3 ML SYRINGE SQ SCH (06:03)
[2016-11-29] MEDS: *HR* HYDROcodone/Acet 5/325 mg TABLET PO PRN ×3 (09:59→20:34)
[2016-11-29] MEDS: Nystatin OINT 15 GM TUBE TP SCH ×4 (10:06→20:35)
[2016-11-29] MEDS: Sennosides/Docusate Sodium TABLET PO SCH (10:06)
--- NOTE | 2016-11-29 10:56 | Internal Med Progress Note ---
Date of Encounter: 11/29/16 Time of Encounter: 10:45 - Assessment and plan (1) Acute on chronic renal failure Current Visit: No Status: Acute Assessment and plan: November 28. Continue to withhold diuretics and give IV fluids. We will check abdominal/pelvic CT to evaluate kidneys and abdominal pain. November 29. Renal function has declined slightly. Abdominal CT scan showed no obvious abnormality. Continue present regimen and recheck labs in a.m. (2) Congestive heart failure Current Visit: No Status: Chronic Assessment and plan: November 28. Continue Lopressor but hold potassium, Bumex, and Zaroxolyn. Recheck labs in a.m. November 29. Continue Lopressor. Recheck labs in a.m. Qualifiers: Congestive heart failure type: systolic Congestive heart failure chronicity : acute on chronic Qualified Code(s): I50.23 - Acute on chronic systolic ( congestive) heart failure (3) Hyperuricemia Current Visit: No Status: Chronic Assessment and plan: November 28. Uric acid elevated at 8.4. Continue allopurinol and IV fluids and withholding diuretics. (4) DM type 2 (diabetes mellitus, type 2) Current Visit: No Status: Chronic Assessment and plan: November 28. Hemoglobin A1c is pending. Continue withholding Glucophage. November 29. Hemoglobin A1c is satisfactory at 5.4%. We will discontinue Glucophage Qualifiers: Diabetes mellitus complication status: without complication Diabetes mellitus custodial insulin use: unspecified custodial insulin use status Qualified Code(s): E11.9 - Type 2 diabetes mellitus without complications (5) Neutrophilia Current Visit: Yes Status: Acute Assessment and plan: November 28. WBC remains normal at 10.7 but segs have increased to 87.6%. Will do abdominal CT and start her on IV Flagyl and Cipro. Recheck labs in a.m. November 29. Abdominal CT unremarkable for pathology. WBC and left shift have improved. Continue IV Flagyl and Cipro. Recheck labs in a.m. (6) Hyperkalemia Current Visit: Yes Status: Acute Assessment and plan: November 29. Will order Kayexalate and recheck labs in a.m. - Subjective Interval history: November 28. She complains of abdominal discomfort November 29. She states she feels slightly better overall. - Constitutional Vitals: Temp Pulse Resp BP Pulse Ox 98.0 F 118 18 95/62 88 11/29/16 10:13 11/29/16 10:13 11/29/16 10:13 11/29/16 10:13 11/29/16 10:13 Exam: She is sitting on the side of bed and appears comfortable. Her lungs are clear. I reviewed her medications, lab results, and abdominal CT report. Internal Medicine: Result - Labs CBC & Chem 7: 11/29/16 05:08 11/29/16 05:08 Labs: Short CBC 11/29/16 Range/Units 05:08 WBC 8.2 (4.3-11.1) K/mcL Hgb 9.6 L (11.5-15.4) g/dL Hct 31.1 L (35.3-44.9) % Plt Count 183 (140-400) K/mcL Neutrophils # 6.9 (1.6-8.9) K/mcL BMP 11/29/16 05:08 Sodium 131 L Potassium 6.4 H Chloride 91 L Carbon Dioxide 25 BUN 64 H Creatinine 3.87 H Glucose 86 Calcium 8.5 L Liver Function 11/29/16 Range/Units 05:08 Total Bilirubin 0.4 (0.2-1.2) mg/dL AST 10 (5-34) Units/L ALT 10 (0-55) Units/L Alkaline Phosphatase 111 (38-126) Units/L Albumin 2.9 L (3.5-5.0) g/dL - ABG Interpretation ABG results: PT/INR, D-dimer PT 14.6 Seconds (9.4-12.1) H 11/27/16 11:24 - Impressions Impressions Abdomen/Pelvis CT 11/28/16 11:17 IMPRESSION: 1. No acute intra-abdominal or pelvic abnormality. 2. Hepatomegaly. 3. Cholelithiasis. D/ / 11/28/2016 12:49:20 Everardo Casey MD / tesha Interpreting Provider: Everardo Casey MD Consult Discharge Plan - Plan Instructions: Chronic Obstructive Pulmonary Disease (DC) Referrals: Rossana Rivers MD [Primary Care Provider] - 1 week
[2016-11-29] MEDS: Albuterol 2.5 MG/3 ML NEBULIZER IH PRN ×2 (11:28→22:01)
[2016-11-30] MEDS: *HR* HYDROcodone/Acet 5/325 mg TABLET PO PRN ×4 (00:27→20:19)
[2016-11-30] MEDS: Prochlorperazine 10 MG/2 ML VIAL IVP PRN (00:27)
[2016-11-30 05:06] LABS: Basophils % 0.1 %; Eosinophils % 0.4 %; Hematocrit 31.5 % (35.3-44.9); Hemoglobin 9.9 g/dL (11.5-15.4); Immature Granulocytes % 0.7 % (0-4); Lymphocytes # 1.5 K/mcL (0.6-4.6); Lymphocytes % 21.7 %; Mean Corpuscular HGB Conc 31.4 g/dL (31.6-35.5); Mean Corpuscular Hemoglobin 29.5 pg (28.0-33.3); Mean Corpuscular Volume 93.8 fL (83.0-100.0); Mean Platelet Volume 11.1 fL (9.4-12.4); Monocytes # 0.5 K/mcL (0.0-1.3); Monocytes % 6.3 %; Nucleated Red Blood Cells 0.6 /100 WBC (0); Platelet Count 194 K/mcL (140-400); Red Blood Count 3.36 M/mcL (3.82-4.97); Red Cell Distribution Width 16.5 % (11.5-14.5); Segmented Neutrophils % 70.8 %
[2016-11-30] MEDS: MetroNIDAZOLE 500 MG/100 ML 500 MG/100 ML BAG IVPB SCH ×3 (05:06→21:06)
[2016-11-30] MEDS: Ondansetron 4 MG/2 ML VIAL IVP PRN ×4 (05:07→20:19)
[2016-11-30] MEDS: *HR* Enoxaparin 30 MG/0.3 ML SYRINGE SQ SCH (05:07)
[2016-11-30 05:09] LABS: ABG Base Excess 1.7 mEq/L (-2.0 to 3.0); ABG HCO3 30 mEQ/L (21-27); ABG Oxygen Saturation 96 % (95-98); ABG PCO2 81 mmHg (35-45); ABG PH 7.18 pH Units (7.32-7.45); ABG PO2 102 mmHg (85-104); ABG TCO2 32.6 mEq/L (20-26)
[2016-11-30 05:25] LABS: Calcium 9.1 mg/dL (8.6-10.8); Potassium 5.7 mEq/L (3.5-4.5)
[2016-11-30] MEDS: Sennosides/Docusate Sodium TABLET PO SCH (09:31)
[2016-11-30] MEDS: Lactobacillus 1 EACH CAP.SPRINK PO SCH ×2 (09:31→21:06)
[2016-11-30] MEDS: Nystatin OINT 15 GM TUBE TP SCH ×4 (09:31→21:06)
[2016-11-30] MEDS: Albuterol 2.5 MG/3 ML NEBULIZER IH PRN ×3 (09:48→21:24)
--- NOTE | 2016-11-30 10:18 | Internal Med Progress Note ---
Date of Encounter: 11/30/16 Time of Encounter: 10:10 - Assessment and plan (1) Acute on chronic renal failure Current Visit: No Status: Acute Assessment and plan: November 28. Continue to withhold diuretics and give IV fluids. We will check abdominal/pelvic CT to evaluate kidneys and abdominal pain. November 29. Renal function has declined slightly. Abdominal CT scan showed no obvious abnormality. Continue present regimen and recheck labs in a.m. November 30. Creatinine has decreased minimally to 3.78. Continue present regimen. (2) Congestive heart failure Current Visit: No Status: Chronic Assessment and plan: November 28. Continue Lopressor but hold potassium, Bumex, and Zaroxolyn. Recheck labs in a.m. November 29. Continue Lopressor. Recheck labs in a.m. November 30. Bn peptide has improved to 293. Continue present regimen Qualifiers: Congestive heart failure type: systolic Congestive heart failure chronicity : acute on chronic Qualified Code(s): I50.23 - Acute on chronic systolic ( congestive) heart failure (3) Hyperuricemia Current Visit: No Status: Chronic Assessment and plan: November 28. Uric acid elevated at 8.4. Continue allopurinol and IV fluids and withholding diuretics. (4) DM type 2 (diabetes mellitus, type 2) Current Visit: No Status: Chronic Assessment and plan: November 28. Hemoglobin A1c is pending. Continue withholding Glucophage. November 29. Hemoglobin A1c is satisfactory at 5.4%. 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 WBC remains normal at 10.7 but segs have increased to 87.6%. Will do abdominal CT and start her on IV Flagyl and Cipro. Recheck labs in a.m. November 29. Abdominal CT unremarkable for pathology. WBC and left shift have improved. Continue IV Flagyl and Cipro. Recheck labs in a.m. November 2. Resolved. Continue IV Flagyl and Cipro for now. (6) Hyperkalemia Current Visit: Yes Status: Acute Assessment and plan: November 29. Will order Kayexalate and recheck labs in a.m. May 2. Improved. We will give additional Kayexalate today. Recheck labs in a.m. - Subjective Interval history: November 28. She complains of abdominal discomfort November 1. She states she feels slightly better overall. November 2. She feels improved. Still complains of some discomfort in her legs and abdomen. - Constitutional Vitals: Temp Pulse Resp BP Pulse Ox 97.9 F 102 22 95/64 96 11/30/16 06:33 11/30/16 06:33 11/30/16 06:33 11/30/16 06:33 11/30/16 09:52 Exam: She is resting comfortably in bed. Her abdomen shows bowel sounds present. It is nontender to palpation. Heart is regular without murmurs gallops or ectopics. Lungs are clear anteriorly. Externally show no edema. She answers questions appropriately. I reviewed her medications and lab results. Internal Medicine: Result - Labs CBC & Chem 7: 11/30/16 05:00 11/30/16 05:00 Labs: Short CBC 11/30/16 Range/Units 05:00 WBC 7.1 (4.3-11.1) K/mcL Hgb 9.9 L (11.5-15.4) g/dL Hct 31.5 L (35.3-44.9) % Plt Count 194 (140-400) K/mcL Neutrophils # 5.0 (1.6-8.9) K/mcL BMP 11/30/16 05:00 Sodium 130 L Potassium 5.7 H Chloride 90 L Carbon Dioxide 25 BUN 66 H Creatinine 3.78 H Glucose 79 Calcium 9.1 - ABG Interpretation ABG results: ABG ABG pH 7.18 pH Units (7.32-7.45) L* 11/30/16 04:00 ABG pCO2 81 mmHg (35-45) H* 11/30/16 04:00 ABG pO2 102 mmHg (85-104) 11/30/16 04:00 ABG O2 Saturation 96 % (95-98) 11/30/16 04:00 PT/INR, D-dimer PT 14.6 Seconds (9.4-12.1) H 11/27/16 11:24 - Impressions Impressions Abdomen/Pelvis CT 11/28/16 11:17 IMPRESSION: 1. No acute intra-abdominal or pelvic abnormality. 2. Hepatomegaly. 3. Cholelithiasis. D/ / 11/28/2016 12:49:20 Everardo Casey MD / tesha Interpreting Provider: Everardo Casey MD Consult Discharge Plan - Plan Instructions: Chronic Obstructive Pulmonary Disease (DC) Referrals: Rossana Rivers MD [Primary Care Provider] - 1 week
[2016-12-01] MEDS: *HR* HYDROcodone/Acet 5/325 mg TABLET PO PRN ×4 (03:22→17:05)
[2016-12-01] MEDS: Ondansetron 4 MG/2 ML VIAL IVP PRN ×4 (03:25→17:04)
[2016-12-01] MEDS: Albuterol 2.5 MG/3 ML NEBULIZER IH PRN ×2 (03:43→13:42)
[2016-12-01] MEDS: *HR* Enoxaparin 30 MG/0.3 ML SYRINGE SQ SCH (05:02)
[2016-12-01] MEDS: MetroNIDAZOLE 500 MG/100 ML 500 MG/100 ML BAG IVPB SCH (05:02)
[2016-12-01] MEDS: Prochlorperazine 10 MG/2 ML VIAL IVP PRN ×2 (05:02→19:59)
[2016-12-01 05:25] LABS: Basophils % 0.3 %; Eosinophils # 0.1 K/mcL (0.0-0.6); Eosinophils % 0.9 %; Hematocrit 29.6 % (35.3-44.9); Hemoglobin 9.5 g/dL (11.5-15.4); Immature Granulocytes % 1.2 % (0-4); Lymphocytes # 1.5 K/mcL (0.6-4.6); Lymphocytes % 22.5 %; Mean Corpuscular HGB Conc 32.1 g/dL (31.6-35.5); Mean Corpuscular Hemoglobin 29.6 pg (28.0-33.3); Mean Corpuscular Volume 92.2 fL (83.0-100.0); Mean Platelet Volume 11.5 fL (9.4-12.4); Monocytes # 0.4 K/mcL (0.0-1.3); Monocytes % 5.9 %; Neutrophils # 4.6 K/mcL (1.6-8.9); Nucleated Red Blood Cells 0.3 /100 WBC (0); Platelet Count 187 K/mcL (140-400); Red Blood Count 3.21 M/mcL (3.82-4.97); Red Cell Distribution Width 16.3 % (11.5-14.5); Segmented Neutrophils % 69.2 %
[2016-12-01 05:44] LABS: Potassium 4.6 mEq/L (3.5-4.5)
[2016-12-01 06:25] LABS: ABG PH 7.22 pH Units (7.32-7.45)
[2016-12-01 06:26] LABS: ABG Base Excess 1.6 mEq/L (-2.0 to 3.0); ABG HCO3 29.4 mEQ/L (21-27); ABG Oxygen Saturation 87 % (95-98); ABG PCO2 73 mmHg (35-45); ABG PO2 66 mmHg (85-104); ABG TCO2 31.6 mEq/L (20-26)
[2016-12-01 06:27] LABS: Blood Gas Liter Flow 3.5 L/MIN
[2016-12-01] MEDS: Sennosides/Docusate Sodium TABLET PO SCH (07:40)
[2016-12-01] MEDS: Lactobacillus 1 EACH CAP.SPRINK PO SCH (07:42)
[2016-12-01] MEDS ORDERED: MetroNIDAZOLE 500 MG TABLET PO SCH ×2 (07:45→14:00)
[2016-12-01] MEDS: Nystatin OINT 15 GM TUBE TP SCH ×4 (09:22→19:51)
--- NOTE | 2016-12-01 10:09 | Internal Med Progress Note ---
Date of Encounter: 12/01/16 Time of Encounter: 10:00 - Assessment and plan (1) Acute on chronic renal failure Current Visit: No Status: Acute Assessment and plan: November 28. Continue to withhold diuretics and give IV fluids. We will check abdominal/pelvic CT to evaluate kidneys and abdominal pain. November 29. Renal function has declined slightly. Abdominal CT scan showed no obvious abnormality. Continue present regimen and recheck labs in a.m. November 2. Creatinine has decreased minimally to 3.78. Continue present regimen. November 3. Azotemia has significantly improved with creatinine 2.76 and estimated GFR 19. Continue present management. Possible discharge home tomorrow if stable. (2) Congestive heart failure Current Visit: No Status: Chronic Assessment and plan: November 28. Continue Lopressor but hold potassium, Bumex, and Zaroxolyn. Recheck labs in a.m. November 1. Continue Lopressor. Recheck labs in a.m. November 30. Bn peptide has improved to 293. Continue present regimen Qualifiers: Congestive heart failure type: systolic Congestive heart failure chronicity : acute on chronic Qualified Code(s): I50.23 - Acute on chronic systolic ( congestive) heart failure (3) Hyperuricemia Current Visit: No Status: Chronic Assessment and plan: November 28. Uric acid elevated at 8.4. Continue allopurinol and IV fluids and withholding diuretics. (4) DM type 2 (diabetes mellitus, type 2) Current Visit: No Status: Chronic Assessment and plan: November 28. Hemoglobin A1c is pending. Continue withholding Glucophage. November 29. Hemoglobin A1c is satisfactory at 5.4%. 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 WBC remains normal at 10.7 but segs have increased to 87.6%. Will do abdominal CT and start her on IV Flagyl and Cipro. Recheck labs in a.m. November 1. Abdominal CT unremarkable for pathology. WBC and left shift have improved. Continue IV Flagyl and Cipro. Recheck labs in a.m. November 2. Resolved. Continue IV Flagyl and Cipro for now. May 3. Remains resolved. We will discontinue antibiotics. (6) Hyperkalemia Current Visit: Yes Status: Acute Assessment and plan: November 1. Will order Kayexalate and recheck labs in a.m. November 2. Improved. We will give additional Kayexalate today. Recheck labs in a.m. November 3. Resolved. Continue present regimen - Subjective Interval history: November 28. She complains of abdominal discomfort November 1. She states she feels slightly better overall. November 2. She feels improved. Still complains of some discomfort in her legs and abdomen. November 3. She feels better overall. She does not mention leg discomfort today. She states her abdominal pain has lessened. - Constitutional Vitals: Temp Pulse Resp BP Pulse Ox 97.8 F 98 17 94/62 94 12/01/16 06:31 12/01/16 06:31 12/01/16 08:52 12/01/16 06:12/01/16 09:08 Exam: She is resting comfortably in bed and wearing BiPAP. Her abdomen is soft and nontender to palpation. Extremities show no edema. I reviewed her medications and lab results. Internal Medicine: Result - Labs CBC & Chem 7: 12/01/16 04:50 12/01/16 04:50 Labs: Short CBC 12/01/16 Range/Units 04:50 WBC 6.6 (4.3-11.1) K/mcL Hgb 9.5 L (11.5-15.4) g/dL Hct 29.6 L (35.3-44.9) % Plt Count 187 (140-400) K/mcL Neutrophils # 4.6 (1.6-8.9) K/mcL BMP 12/01/16 04:50 Sodium 131 L Potassium 4.6 H D Chloride 91 L Carbon Dioxide 26 BUN 56 H Creatinine 2.76 H Glucose 96 Calcium 9.0 - ABG Interpretation ABG results: ABG ABG pH 7.22 pH Units (7.32-7.45) L 12/01/16 06:15 ABG pCO2 73 mmHg (35-45) H* 12/01/16 06:15 ABG pO2 66 mmHg (85-104) L 12/01/16 06:15 ABG O2 Saturation 87 % (95-98) L 12/01/16 06:15 PT/INR, D-dimer PT 14.6 Seconds (9.4-12.1) H 11/27/16 11:24 Consult Discharge Plan - Plan Instructions: Chronic Obstructive Pulmonary Disease (DC) Referrals: Rossana Rivers MD [Primary Care Provider] - 1 week
[2016-12-02 00:52] VITALS: BP 121/76
[2016-12-02] MEDS: Ondansetron 4 MG/2 ML VIAL IVP PRN ×2 (01:39→07:46)
[2016-12-02] MEDS: *HR* HYDROcodone/Acet 5/325 mg TABLET PO PRN ×2 (01:39→07:45)
[2016-12-02] MEDS: *HR* Enoxaparin 30 MG/0.3 ML SYRINGE SQ SCH (06:39)
[2016-12-02 07:57] LABS: Calcium 9.3 mg/dL (8.6-10.8); Potassium 4.7 mEq/L (3.5-4.5)
[2016-12-02] MEDS: Albuterol 2.5 MG/3 ML NEBULIZER IH PRN (08:39)
[2016-12-02] MEDS: Nystatin OINT 15 GM TUBE TP SCH (09:34)
[2016-12-02] MEDS: Sennosides/Docusate Sodium TABLET PO SCH (09:34)
--- NOTE | 2016-12-02 09:45 | Discharge Summary ---
Date of Encounter: 12/02/16 Time of Encounter: 09:30 - Discharge Diagnosis (1) Acute on chronic renal failure Priority: Primary Status: Acute (2) Congestive heart failure Priority: Secondary Status: Chronic Qualifiers: Congestive heart failure type: systolic Congestive heart failure chronicity : acute on chronic Qualified Code(s): I50.23 - Acute on chronic systolic ( congestive) heart failure (3) Hyperuricemia Priority: Secondary Status: Chronic (4) DM type 2 (diabetes mellitus, type 2) Priority: Secondary Status: Chronic Qualifiers: Diabetes mellitus complication status: without complication Diabetes mellitus group home insulin use: unspecified group home insulin use status Qualified Code(s): E11.9 - Type 2 diabetes mellitus without complications (5) Neutrophilia Priority: Secondary Status: Resolved (6) Hyperkalemia Priority: Secondary Status: Resolved - Discharge Medications Home Medications: Albuterol Neb [Proventil Neb] 2.5 mg IH Q2H PRN #60 vial.neb 01/01/16 [Rx] Allopurinol [Zyloprim 100 MG] 400 mg PO DAILY #120 tablet 01/01/16 [Rx] Nicotine Patch [Nicoderm] 14 mg TD DAILY #28 patch.td24 01/01/16 [Rx] Omeprazole [PriLOSEC] 20 mg PO DAILY 02/23/16 [History] Oxygen 3 l NS AD 02/23/16 [History] HYDROcodone/Acet 5/325 mg [[place] 5-325 mg] 1 tab PO Q4HR PRN #42 tablet [Rx] MOM Conc [MILK OF MAGNESIA conc] 10 ml PO DAILY PRN #300 ud.liq 02/26/16 [Rx] Nystatin OINT [Mycostatin] 1 appl TP QID 21 Days 02/26/16 [Rx] Sennosides/Docusate Sodium [Senna Plus] 2 each PO DAILY 30 Days 02/26/16 [Rx] Budesonide/Formoterol 160/4.5 [Symbicort 160/4.5] 1 puff IH BIDR #1 hfa.aer.ad 04/16/16 [Rx] Metoprolol [Lopressor] 25 mg PO BID #60 tablet 05/28/16 [Rx] Montelukast [Singulair] 10 mg PO DAILY #30 tablet 05/28/16 [Rx] Theophylline Anhydrous [Theodur] 300 mg PO BID #60 tab.er.12h 05/28/16 [Rx] Tiotropium [Spiriva] 18 mcg IH DAILY #30 inh 05/28/16 [Rx] Allergies/Adverse Reactions: Allergies No Known Allergies Allergy (Verified 04/14/16 22:08) Date of admission: 11/27/16 19:05 Primary care physician: Rossana Rivers MD Consults: 12/01/16 10:12 Consult to Occupational Therapy [CONS] Routine Comment: Evaluate, develop and implement POC Reason for Consult: Weakness Consult to Physical Therapy [CONS] Routine Comment: Evaluate, develop and implement POC Reason for Consult: Weakness - Patient Status Disposition: Home, Self-Care Condition: Fair Functional capacity at discharge: independent ambulation Overall status at discharge: patient is progressing back to baseline - Discharge Instructions Instructions: Chronic Obstructive Pulmonary Disease (DC) Follow Up With: Rossana Rivers MD [Primary Care Provider] - 1 week - Diet and Activity Activity: resume usual activities as tolerated Diet: diabetic diet Hospital course: Ms. Munoz is a 46 year old female who came to emergency room complaining of increasing dyspnea and cough over the past week. She reports producing greenish sputum but denies hemoptysis. She was evaluated in emergency room and felt to have exacerbation of COPD and acute renal failure. She was admitted to [facility] for ongoing care needs. Initial orders were written by the emergency room physician. I saw her on November 27 and performed the history and physical. Diuretics were held and IV fluids were ordered. She initially had worsening of her azotemia with creatinine rising to 3.87 on November 29. There was significant improvement in her creatinine with decrease to 1.77 on the day of discharge with estimated GFR of 31. She will remain off diuretics, magnesium, potassium at discharge. The WBC remained normal. There was resolution of the left shift. IV Cipro and Flagyl were given until December 01 but antibiotics will not be continued at discharge. She used BiPAP intermittently to maintain satisfactory oxygenation and ventilation. She felt significantly improved when I saw her on December 02. She was stable for discharge home. She will follow with her PCP within one week. - Time Spent with Patient Total time spent providing and/or coordinating discharge services: - Constitutional Vitals: Temp Pulse Resp BP Pulse Ox 98.0 F 127 15 121/76 90 12/02/16 08:04 12/02/16 09:29 12/02/16 08:42 12/02/16 00:10 12/02/16 09:29
[2016-12-03] MEDS ORDERED: *HR* Enoxaparin 40 MG/0.4 ML SYRINGE SQ SCH (06:00)
[2016-12-03] MEDS ORDERED: ALLOPURINOL PO SCH (09:00)
== END 2016-12-02 12:15 | disposition home or self-care (01) | DRG 469 ==
LOC: EMEROOPIK 10:59 → INPPIK 10:59
PROVIDERS: ADMIT Internal Medicine; ATTEND Internal Medicine

== ENCOUNTER 2016-12-23 12:28 | Observation (INO) ==
--- NOTE | 2016-12-23 13:05 | Emergency Department Note ---
Disposition Clinical Impression: Abdominal pain, Morbid obesity with BMI of 50.0-59.9, adult, Acute exacerbation of chronic obstructive airways disease, Hyperkalemia Disposition: Admitted As Inpatient Condition: Fair Time of Disposition: 16:37 (cedric robles) Abdominal Pain HPI - General Chief Complaint: ED Abdominal Pain Stated Complaint: left lower abd pain Time Seen by Provider: 12/23/16 13:35 Source: patient, EMS Mode of arrival: EMS Limitations: physical limitation (global weakness similar to prior visits) Nursing Notes Reviewed: Yes Vital Signs Reviewed: Yes - History of Present Illness HPI Narrative: 46-year-old female states that she is having left lower quadrant pain started on Tuesday with diarrhea telling the nurse diarrhea started yesterday and now soft formed stool states that she has had no fevers no chills no lightheadedness or dizziness no chest pain no chest pressure but says she is still short of breath unlike her normal she denies any numbness tingling weakness denies any rashes or lesions are states the left lower quadrant pain states feels like there is a mass that she denies any additional complaints with complete entire review of systems Pt Subjective Complaint: abdominal pain Onset (ago): day(s) (3-4) Consistency: constant Location: LLQ Pain Severity: moderate, severe Pain Scale: 8 Quality: cramping Radiation: none Migration to: no migration Improves with: nothing Worsens with: movement Associated symptoms: Reports: nausea, vomiting, diarrhea. Denies: fever, chills , constipation, dysuria, hematemesis, hematochezia, melena, anorexia, syncope Treatments prior to arrival: none - Related Data Home Medications Medication Instructions Recorded Confirmed Omeprazole [PriLOSEC] 20 mg PO DAILY 02/23/16 12/23/16 Oxygen 3 l NS AD 02/23/16 12/23/16 Previous Rx's Medication Instructions Recorded Allopurinol [Zyloprim 100 MG] 400 mg PO DAILY #120 tablet 01/01/16 MOM Conc [MILK OF MAGNESIA conc] 10 ml PO DAILY PRN #300 ud.liq 02/26/16 Sennosides/Docusate Sodium [Senna 2 each PO DAILY 30 Days 02/26/16 Plus] Metoprolol [Lopressor] 25 mg PO BID #60 tablet 05/28/16 Montelukast [Singulair] 10 mg PO DAILY #30 tablet 05/28/16 Albuterol Neb [Proventil Neb] 2.5 mg IH Q2H PRN #60 vial.neb 12/08/16 Albuterol Sulfate [Albuterol 2 puff IH Q6HR PRN #1 hfa.aer.ad 12/08/16 Inhaler] Budesonide/Formoterol 160/4.5 1 puff IH BIDR #1 hfa.aer.ad 12/08/16 [Symbicort 160/4.5] Theophylline Anhydrous [Theodur] 300 mg PO BID #60 tab.er.12h 12/08/16 Tiotropium [Spiriva] 18 mcg IH DAILY #30 inh 12/08/16 Allergies Allergy/AdvReac Type Severity Reaction Status Date / Time No Known Allergies Allergy Verified 12/08/16 21:09 All systems ED: reviewed and negative except as stated. Constitutional: Denies: fever, chills, weakness Eyes: Denies: eye pain ENT ED: Denies: ear pain Cardiovascular: Denies: chest pain, palpitations Respiratory: Reports: dyspnea Gastrointestinal: Reports: abdominal pain, nausea. 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 Psychiatric history: Reports: anxiety, depression - Social History Smoking status: Former smoker Alcohol use: Reports: none Drug use: Reports: marijuana Physical Exam - General Limitations: no limitations General appearance: alert, in no apparent distress, anxious, obese - Head Head exam: atraumatic, normocephalic, normal inspection - Eye Eye exam: Present: normal appearance, PERRL, EOMI - ENT ENT exam: normal exam, normal oropharynx, mucous membranes moist, TM's normal bilaterally, normal external ear exam - Neck Neck exam: Present: normal inspection, full ROM, trachea midline - Chest Chest inspection: Present: normal inspection, symmetric chest wall rise - Respiratory Respiratory exam: Present: normal lung sounds bilaterally - Cardiovascular Cardiovascular exam: Present: regular rate, normal rhythm, normal heart sounds - Abdominal Exam Abdominal exam: Present: soft, Non-Tender, normal bowel sounds. Absent: mass, pulsatile mass - Expanded Upper Extremity Exam Shoulder exam: Present: normal inspection, full ROM Arm exam: Present: normal inspection, full ROM Elbow exam: Present: normal inspection, full ROM Forearm/Wrist exam: Present: normal inspection, full ROM Hand exam: Present: normal inspection, full ROM Vascular exam: Normal: capillary refill, radial pulse - Expanded Lower Extremity Exam Hip/Pelvis exam: Present: normal inspection, full ROM Upper leg exam: Present: normal inspection, full ROM Knee exam: Present: normal inspection, full ROM Lower leg exam: Present: normal inspection, full ROM Ankle exam: Present: normal inspection, full ROM Foot/toe exam: Present: normal inspection, full ROM Neurovascular/Tendon exam: Present: normal capillary refill, normal fine/light touch. Absent: motor deficit, sensory deficit, tendon deficit Gait: observed and normal - Back Exam Back exam: Present: normal inspection, full ROM. Absent: muscle spasm - Neurological Exam Neurological exam: Present: alert, oriented X3, CN II-XII intact, normal gait - Psychiatric Psychiatric exam: Present: normal affect, normal mood - Skin Skin exam: Present: warm, dry, intact, normal color Course Course Narrative: Seen and examined x-rays ordered lab ordered awaiting CT results - Reevaluation(s) Reevaluation #1: She received a couple doses of pain medication and is still complaining of abdominal pain with her hyperkalemia and the abdominal pain will recommend observation will discuss with patient's if she is agreeable patient to use to have some intermittent hypoxia but this is not uncommon for her based on her past medical surgical history patient admits that she is out of Vicodin Reevaluation #2: She will be transferred to [facility] for further management Vital Signs Temperature 99.0 F 12/23/16 12:29 Pulse Rate 124 12/23/16 12:29 Respiratory Rate 21 12/23/16 12:29 Blood Pressure 126/84 12/23/16 12:29 O2 Sat by Pulse Oximetry 89 12/23/16 12:29 Temperature 99.0 F 12/23/16 12:29 Pulse Rate 125 12/23/16 15:52 Respiratory Rate 18 12/23/16 15:52 Blood Pressure 93/60 12/23/16 15:52 O2 Sat by Pulse Oximetry 75 12/23/16 15:52 Oxygen Delivery Oxygen Delivery Nasal Cannula Abdominal Pain - Differential Diagnosis Differential Diagnosis: Likely: abdominal pain non-specific, diverticulitis, diverticulosis, endometriosis, pancreatitis - Medical Records Medical records reviewed: Yes I reviewed the patient's medical records. - Lab Data Lab results reviewed: Yes I reviewed the patient's lab results. Result diagrams: 12/23/16 13:17 12/23/16 13:17 Lab Results 12/23/16 12/23/16 12/23/16 Range/Units 13:10 13:17 13:17 WBC 5.4 (4.3-11.1) K/mcL RBC 3.66 L (3.82-4.97) M/mcL Hgb 10.5 L (11.5-15.4) g/dL Hct 36.6 (35.3-44.9) % MCV 100.0 (83.0-100.0) fL MCH 28.7 (28.0-33.3) pg MCHC 28.7 L (31.6-35.5) g/dL RDW 17.1 H (11.5-14.5) % Plt Count 205 (140-400) K/mcL MPV 11.7 (9.4-12.4) fL Immature Gran % 0.2 (0-4) % Seg Neutrophils % 59.7 % Lymphocytes % 27.0 % Monocytes % 10.4 % Eosinophils % 2.0 % Basophils % 0.7 % Neutrophils # 3.2 (1.6-8.9) K/mcL Lymphocytes # 1.5 (0.6-4.6) K/mcL Monocytes # 0.6 (0.0-1.3) K/mcL Eosinophils # 0.1 (0.0-0.6) K/mcL Basophils # 0.0 (0.0-0.2) K/mcL Hypochromasia Present A (Not Present) PT 12.3 H (9.4-12.1) Seconds INR 1.1 APTT 34.2 (26.0-36.0) Seconds Sodium (136-145) mEq/L Potassium (3.5-4.5) mEq/L Chloride (98-109) mEq/L Carbon Dioxide (19-29) mEq/L BUN (7-20) mg/dL Creatinine (0.57-1.11) mg/dL Est GFR ( Amer) (> 60) Est GFR (Non-Af Amer) (> 60) BUN/Creatinine Ratio (6-26) Glucose (70-99) mg/dL Calculated Osmolality (280-300) Calcium (8.6-10.8) mg/dL Total Bilirubin (0.2-1.2) mg/dL Direct Bilirubin (0.0-0.5) mg/dL Indirect Bilirubin (0.0-1.2) mg/dL AST (5-34) Units/L ALT (0-55) Units/L Alkaline Phosphatase (38-126) Units/L Serum Total Protein (6.0-8.3) g/dL Albumin (3.5-5.0) g/dL Globulin (2.4-3.5) g/dL Albumin/Globulin Ratio (1.1-2.2) Lipase (8-78) Units/L Urine Color Yellow (Yellow) Urine Clarity Clear (Clear) Urine pH 5.5 (5.0-8.0) pH Units Ur Specific [place] 1.015 (1.010-1.025) Urine Protein 30 H (Neg-Trace) mg/dL Urine Glucose (UA) Normal (Normal) mg/dL Urine Ketones Negative (Negative) mg/dL Urine Blood Small H (Negative) Urine Nitrite Negative (Negative) Urine Bilirubin Negative (Negative) Urine Urobilinogen Normal (Normal) mg/dL Ur Leukocyte Esterase Negative (Negative) Urine Microscopic RBC 3-5 H (0-3) per hpf Urine Microscopic WBC 0-3 (0-3) per hpf Urine Bacteria Few (None-Few) per hpf Urine Mucus Few (Few) Ur Culture Indicated? NO (NO) 12/23/16 12/23/16 Range/Units 13:17 13:17 WBC (4.3-11.1) K/mcL RBC (3.82-4.97) M/mcL Hgb (11.5-15.4) g/dL Hct (35.3-44.9) % MCV (83.0-100.0) fL MCH (28.0-33.3) pg MCHC (31.6-35.5) g/dL RDW (11.5-14.5) % Plt Count (140-400) K/mcL MPV (9.4-12.4) fL Immature Gran % (0-4) % Seg Neutrophils % % Lymphocytes % % Monocytes % % Eosinophils % % Basophils % % Neutrophils # (1.6-8.9) K/mcL Lymphocytes # (0.6-4.6) K/mcL Monocytes # (0.0-1.3) K/mcL Eosinophils # (0.0-0.6) K/mcL Basophils # (0.0-0.2) K/mcL Hypochromasia (Not Present) PT (9.4-12.1) Seconds INR APTT (26.0-36.0) Seconds Sodium 140 (136-145) mEq/L Potassium 5.7 H (3.5-4.5) mEq/L Chloride 96 L (98-109) mEq/L Carbon Dioxide 35 H (19-29) mEq/L BUN 27 H (7-20) mg/dL Creatinine 1.08 (0.57-1.11) mg/dL Est GFR ( Amer) > 60 (> 60) Est GFR (Non-Af Amer) 55 L (> 60) BUN/Creatinine Ratio 25 (6-26) Glucose 122 H (70-99) mg/dL Calculated Osmolality 296 (280-300) Calcium 9.3 (8.6-10.8) mg/dL Total Bilirubin 0.4 (0.2-1.2) mg/dL Direct Bilirubin 0.2 (0.0-0.5) mg/dL Indirect Bilirubin 0.2 (0.0-1.2) mg/dL AST 15 (5-34) Units/L ALT 14 (0-55) Units/L Alkaline Phosphatase 122 (38-126) Units/L Serum Total Protein 7.4 (6.0-8.3) g/dL Albumin 3.5 (3.5-5.0) g/dL Globulin 3.9 H (2.4-3.5) g/dL Albumin/Globulin Ratio 0.9 L (1.1-2.2) Lipase 88 H (8-78) Units/L Urine Color (Yellow) Urine Clarity (Clear) Urine pH (5.0-8.0) pH Units Ur Specific [place] (1.010-1.025) Urine Protein (Neg-Trace) mg/dL Urine Glucose (UA) (Normal) mg/dL Urine Ketones (Negative) mg/dL Urine Blood (Negative) Urine Nitrite (Negative) Urine Bilirubin (Negative) Urine Urobilinogen (Normal) mg/dL Ur Leukocyte Esterase (Negative) Urine Microscopic RBC (0-3) per hpf Urine Microscopic WBC (0-3) per hpf Urine Bacteria (None-Few) per hpf Urine Mucus (Few) Ur Culture Indicated? (NO) - Radiology Data Radiology results reviewed: Yes I reviewed the patient's radiology results. Critical Care Time Critical Care Time: No
[2016-12-23 13:20] LABS: Bilirubin,Urine Negative (Negative); Blood,Urine Small (Negative); Clarity,Urine Clear (Clear); Color,Urine Yellow (Yellow); Glucose,Urine (UA) Normal (Normal); Ketones,Urine Negative (Negative); Leukocyte Esterase,Urine Negative (Negative); Nitrite,Urine Negative (Negative); PH,Urine 5.5 pH Units (5.0-8.0); Protein,Urine 30 mg/dL (Neg-Trace); Specific Gravity,Urine 1.015 (1.010-1.025); Urobilinogen,Urine Normal (Normal)
[2016-12-23 13:31] LABS: Basophils % 0.7 %; Eosinophils # 0.1 K/mcL (0.0-0.6); Hematocrit 36.6 % (35.3-44.9); Hemoglobin 10.5 g/dL (11.5-15.4); Immature Granulocytes % 0.2 % (0-4); Lymphocytes # 1.5 K/mcL (0.6-4.6); Mean Corpuscular HGB Conc 28.7 g/dL (31.6-35.5); Mean Corpuscular Hemoglobin 28.7 pg (28.0-33.3); Mean Platelet Volume 11.7 fL (9.4-12.4); Monocytes # 0.6 K/mcL (0.0-1.3); Monocytes % 10.4 %; Neutrophils # 3.2 K/mcL (1.6-8.9); Platelet Count 205 K/mcL (140-400); Red Blood Count 3.66 M/mcL (3.82-4.97); Red Cell Distribution Width 17.1 % (11.5-14.5); Segmented Neutrophils % 59.7 %
[2016-12-23 13:34] LABS: INR 1.1; Prothrombin Time 12.3 Seconds (9.4-12.1)
[2016-12-23 13:37] LABS: Activated Partial Thrombo Time 34.2 Seconds (26.0-36.0)
[2016-12-23 13:40] LABS: Bacteria,Urine Few per hpf (None-Few); Mucus,Urine Few (Few); WBC,Urine 0-3 per hpf (0-3)
[2016-12-23 13:43] LABS: BUN/Creatinine Ratio 25 (6-26); Blood Urea Nitrogen 27 mg/dL (7-20); Calcium 9.3 mg/dL (8.6-10.8); Carbon Dioxide 35 mEq/L (19-29); Chloride 96 mEq/L (98-109); Glucose 122 mg/dL (70-99); Osmolality,Calculated 296 (280-300); Potassium 5.7 mEq/L (3.5-4.5); Sodium 140 mEq/L (136-145); eGFR For African Americans > 60 (> 60); eGFR For Non-African Americans 55 (> 60)
[2016-12-23 13:51] LABS: Hypochromasia Present (Not Present)
[2016-12-23] MEDS ORDERED: Ipratropium/Albuterol Neb 3 ML IH ONE (13:54)
[2016-12-23] MEDS ORDERED: Ondansetron ODT 4 MG TAB.RAPDIS SL ONE (14:14)
[2016-12-23] MEDS ORDERED: Ketorolac 60 MG/2 ML VIAL IM ONE (14:14)
[2016-12-23] MEDS ORDERED: *HR* Nalbuphine 20 MG/ML AMPUL IVP STA (14:57)
[2016-12-23 16:22] LABS: Albumin 3.5 g/dL (3.5-5.0); Albumin/Globulin Ratio 0.9 (1.1-2.2); Bilirubin,Direct 0.2 mg/dL (0.0-0.5); Bilirubin,Indirect 0.2 mg/dL (0.0-1.2); Bilirubin,Total 0.4 mg/dL (0.2-1.2); Globulin 3.9 g/dL (2.4-3.5); Total Protein 7.4 g/dL (6.0-8.3)
[2016-12-23] MEDS ORDERED: NON-FORMULARY MEDICATION 1 EACH EACH (Oxygen [Oxygen] 3 L) NS SCH (17:11)
[2016-12-23] MEDS ORDERED: Naloxone 0.4 MG/ML INJ IVP PRN (17:11)
[2016-12-23] MEDS ORDERED: Albuterol 2.5 MG/3 ML NEBULIZER IH PRN (17:11)
[2016-12-23] MEDS ORDERED: MOM Conc 10 ML UD.LIQ PO PRN (17:11)
[2016-12-23] MEDS: Ampicillin/Sulbactam 3,000 MG in 0.9 % Sodium Chloride Mini Bag 100 ML IVPB SCH (17:44)
[2016-12-23] MEDS: *HR* HYDROcodone/Acet 5/325 mg TABLET PO PRN (17:45)
[2016-12-23] MEDS: methylPREDNISolone 125 MG/2 ML VIAL IVP SCH (17:45)
[2016-12-23] MEDS: 0.9 % Sodium Chloride 1,000 ML IVC SCH (18:35)
[2016-12-23] MEDS: *HR* Morphine 2 MG/ML SYRINGE IVP PRN (20:03)
[2016-12-23] MEDS: Budesonide/Formoterol 160/4.5 MDI IH SCH (20:57)
[2016-12-23] MEDS: Albuterol 2.5 MG/3 ML NEBULIZER IH PRN (20:57)
[2016-12-24] MEDS: *HR* HYDROcodone/Acet 5/325 mg TABLET PO PRN ×5 (00:13→22:27)
[2016-12-24] MEDS: *HR* Morphine 2 MG/ML SYRINGE IVP PRN ×3 (00:13→08:15)
[2016-12-24] MEDS: methylPREDNISolone 125 MG/2 ML VIAL IVP SCH ×2 (00:13→05:26)
[2016-12-24] MEDS: Ampicillin/Sulbactam 3,000 MG in 0.9 % Sodium Chloride Mini Bag 100 ML IVPB SCH ×5 (00:14→23:59)
[2016-12-24] MEDS: Ondansetron ODT 4 MG TAB.RAPDIS SL PRN ×3 (04:10→22:27)
[2016-12-24] MEDS: 0.9 % Sodium Chloride 1,000 ML IVC SCH ×2 (05:29→10:15)
[2016-12-24 06:02] LABS: Hematocrit 40.1 % (35.3-44.9); Hemoglobin 11.1 g/dL (11.5-15.4); Immature Granulocytes % 1.1 % (0-4); Lymphocytes # 0.2 K/mcL (0.6-4.6); Lymphocytes % 6.1 %; Mean Corpuscular HGB Conc 27.7 g/dL (31.6-35.5); Mean Corpuscular Hemoglobin 28.6 pg (28.0-33.3); Mean Corpuscular Volume 103.4 fL (83.0-100.0); Mean Platelet Volume 11.7 fL (9.4-12.4); Monocytes % 0.5 %; Neutrophils # 3.5 K/mcL (1.6-8.9); Platelet Count 203 K/mcL (140-400); Red Blood Count 3.88 M/mcL (3.82-4.97); Red Cell Distribution Width 17.2 % (11.5-14.5); Segmented Neutrophils % 92.3 %
[2016-12-24 06:07] LABS: INR 1.1; Prothrombin Time 11.6 Seconds (9.4-12.1)
[2016-12-24 06:09] LABS: Activated Partial Thrombo Time 34.7 Seconds (26.0-36.0)
[2016-12-24 06:17] LABS: Calcium 8.9 mg/dL (8.6-10.8); Potassium 6.4 mEq/L (3.5-4.5)
[2016-12-24 07:09] LABS: Hypochromasia Present (Not Present); Platelet Estimate Normal (Normal)
[2016-12-24] MEDS: Sennosides/Docusate Sodium TABLET PO SCH (08:15)
[2016-12-24] MEDS: ALLOPURINOL PO SCH (08:15)
[2016-12-24] MEDS: Nystatin Cream 15 GM TUBE TP SCH ×2 (08:16→22:26)
[2016-12-24] MEDS: Albuterol 2.5 MG/3 ML NEBULIZER IH PRN ×2 (08:24→22:05)
[2016-12-24] MEDS: Tiotropium 18 MCG inhalation IH SCH (08:25)
--- NOTE | 2016-12-24 11:10 | Internal Med History&Physical ---
Date of Encounter: 12/24/16 Time of Encounter: 10:30 Assessment and Plan (1) Panniculitis Current visit: No Status: Acute She has been started on IV antibiotics. I will give prednisone and Neurontin. Will hold NSAID drugs because of renal insufficiency. (2) Hyperuricemia Current visit: No Status: Chronic We will check uric acid level. (3) CKD (chronic kidney disease) stage 3, GFR 30-59 ml/min Current visit: No Status: Chronic Will monitor renal indices. (4) Hyperkalemia Current visit: Yes Status: Acute She has been started on Kayexalate. I will increase the dose since potassium has risen today. Internal Medicine - H&P: HPI Chief complaint: Abdominal pain Admitted From: Home Plans for Post Hospital Care: Home History of present illness: Ms. Munoz is a 46 year old female who came to emergency room stating she has had LLQ abdominal pain for approximately 3 weeks. She reports it was present when she was discharged from [facility] December 02. It worsened approximately 3-4 days ago. She reports she has had "runny bowel movements" for the last 4 days. She denies any melena or hematochezia or hematemesis. She has vomited 3 times since the pain worsened. She dates the pain is sudden in onset and last a few minutes to hours and then abruptly resolves. It does not occur on a daily basis. It is not related to position or food. She was evaluated emergency room and admitted to [facility] floor for ongoing care needs. She has GERD but denies disorders of her liver or exocrine pancreas. She has a gallstone without evidence of cholecystitis on abdominal/pelvic CT done in the emergency room. She has hepatosplenomegaly and anasarca. She has had previous abdominal wall hernia repair. She has had increased cough with production of clear to yellowish sputum. Past Med Surg Social Fam HX - Past Medical History Medical history: arthritis, asthma, cardiomyopathy, CHF, COPD, diabetes, GERD, hypertension, osteoporosis, peripheral artery disease, venous stasis, other Psychiatric history: anxiety, depression - Past Surgical History Surgical History: herniorrhaphy, other - Social History Smoking Status: Former smoker Smokeless Tobacco Status: No Alcohol use: none Drug use: marijuana - Family History Son Adopted: No Family Member Ethnicity: Non- Living Status: Still Living Hx Family Cardiac Disorders: Yes Hx Family Respiratory Disorders: Yes Hx Family Cancer: No Hx Family GI Disorders: No Hx Family Endocrine Disorder: Yes Hx Family Neuromuscular Disorders: No Hx Family Neurologic Disorders: No Hx Family HEENT Disorders: No Hx Family Autoimmune Disorders: No Father Living Status: Hx Family Cardiac Disorders: Yes (enlarged heart) Hx Family Cancer: Yes (Lung and rectal cancer) Hx Family Endocrine Disorder: Yes (diabetic) Mother Living Status: Hx Family Cardiac Disorders: Yes (stents) Hx Family GI Disorders: Yes (GI bleed) Hx Family Endocrine Disorder: Yes (diabetic) Internal Medicine - H&P: Meds Allopurinol [Zyloprim 100 MG] 400 mg PO DAILY #120 tablet 01/01/16 [Rx] Omeprazole [PriLOSEC] 20 mg PO DAILY 02/23/16 [History] Oxygen 3 l NS AD 02/23/16 [History] MOM Conc [MILK OF MAGNESIA conc] 10 ml PO DAILY PRN #300 ud.liq 02/26/16 [Rx] Sennosides/Docusate Sodium [Senna Plus] 2 each PO DAILY 30 Days 02/26/16 [Rx] Metoprolol [Lopressor] 25 mg PO BID #60 tablet 05/28/16 [Rx] Montelukast [Singulair] 10 mg PO DAILY #30 tablet 05/28/16 [Rx] Albuterol Neb [Proventil Neb] 2.5 mg IH Q2H PRN #60 vial.neb 12/08/16 [Rx] Albuterol Sulfate [Albuterol Inhaler] 2 puff IH Q6HR PRN #1 hfa.aer.ad 12/08/16 [Rx] Budesonide/Formoterol 160/4.5 [Symbicort 160/4.5] 1 puff IH BIDR #1 hfa.aer.ad 12/08/16 [Rx] Theophylline Anhydrous [Theodur] 300 mg PO BID #60 tab.er.12h 12/08/16 [Rx] Tiotropium [Spiriva] 18 mcg IH DAILY #30 inh 12/08/16 [Rx] Allergies No Known Allergies Allergy (Verified 12/08/16 21:09) All Systems PM: A 10-system review of systems was performed and is negative for pertinent findings except as documented above in the HPI. Review of systems: Review of systems from her October 2016 history and physical were reviewed and revised as below. Gen.: Her weight decreased from 136.95 kg at the March 2014 [facility] hospitalization to 112.945 kg now Cardiovascular: She denies CT hypertension heart failure DVT or pulmonary embolus. She claims she had a heart catheterization [address] [facility] which was unremarkable. She had an echocardiogram during her January 2016 [facility] stay which showed LVEF of 40%. There was indeterminant diastolic function seen. There was elevated RVSP estimate of 54 mmHg. There was [id number] tricuspid regurgitation. Respiratory: She states she smoked from age 12 until November 2015. She smoked up to 4 packs per day. She has been diagnosed with COPD with PFTs done approximately 2007. She wears oxygen by nasal cannula 24/7 at 2 L/m and uses CPAP at bedtime for PATRICIO at settings of 18/14. Her most recent chest CT was 03/2016. GI: As per history of present illness : No history of hematuria dysuria or kidney stones. She has CKD3 and follows with a [employer]. Neurologic: No history of large distribution strokes or seizures Endocrine: She was diagnosed with DM 2 approximately 1993. She has hyperlipidemia but cannot tolerate statin drugs. She denies thyroid disease. Hematology/oncology: No history of blood disorders cancers or anemia Psychiatric: She has anxiety and depression and follows at mental health clinic [place] skeletal: She has no significant arthritis or osteoporosis. She has been diagnosed with hyperuricemia and was prescribed allopurinol in the past but states she has not been taking it at home. She does complain of chronic low back pain - Constitutional Vitals: Temp Pulse Resp BP Pulse Ox 98.6 F 104 16 103/65 91 12/24/16 11:03 12/24/16 11:03 12/24/16 11:03 12/24/16 11:03 12/24/16 11:03 Exam: Gen.: She is a well-developed obese female who appears anxious. She has periodic outbursts of crying stating she has discomfort in her left lower abdominal area HEENT: Head is atraumatic and normal cephalic. Eyes: EOMI. There is no scleral icterus. Mouth: Mucosa is moist. Neck: Supple and nontender. There is no thyromegaly or adenopathy noted. Heart: Regular without murmurs gallops or ectopics. Lungs: No wheezes or crackles are heard. She has diminished breath sounds diffusely. Abdomen: She has a very large abdominal pannus. There is tenderness to light palpation of the skin and subcutaneous tissues in the left lower abdominal area. She states the pain is the same pain she experienced at home. There are no visible skin lesions. Extremities: There is no cyanosis noted. She has 1-2+ edema of the dorsum of the feet and lower anterior shins bilaterally. She has minimal DJD changes of her hands. Neurologic: Mental status: She is talkative and a fair to good historian. Cranial nerves: Smile is symmetric. Forehead wrinkles bilaterally. Tongue protrudes midline. EOMI. Motor: There is no pronator drift. Cerebellar: Finger to nose is intact bilaterally. Skin: Warm and dry Internal Med - H&P Results - Labs CBC & Chem 7: 12/24/16 05:42 12/24/16 05:42 Labs: Short CBC 12/24/16 Range/Units 05:42 WBC 3.8 L (4.3-11.1) K/mcL Hgb 11.1 L (11.5-15.4) g/dL Hct 40.1 (35.3-44.9) % Plt Count 203 (140-400) K/mcL Neutrophils # 3.5 (1.6-8.9) K/mcL BMP 12/24/16 05:42 Sodium 138 Potassium 6.4 H Chloride 93 L Carbon Dioxide 34 H BUN 33 H Creatinine 1.33 H Glucose 237 H Calcium 8.9
[2016-12-24 11:51] LABS: ABG HCO3 39 mEQ/L (21-27); ABG PCO2 115 mmHg (35-45); ABG PH 7.14 pH Units (7.32-7.45); ABG PO2 53 mmHg (85-104)
[2016-12-24 11:52] LABS: ABG Oxygen Saturation 72 % (95-98); ABG TCO2 42.5 mEq/L (20-26); Blood Gas Liter Flow 4 L/MIN; Blood Gas Respiration Rate 36
[2016-12-24] MEDS: Budesonide/Formoterol 160/4.5 MDI IH SCH ×2 (11:58→22:05)
[2016-12-24] MEDS: Acetaminophen 325 MG TABLET PO SCH ×3 (12:08→23:56)
[2016-12-24] MEDS: Gabapentin 100 MG CAPSULE PO SCH ×3 (12:08→22:26)
[2016-12-24] MEDS: predniSONE 20 MG TABLET PO SCH ×2 (12:08→18:01)
[2016-12-25] MEDS: Albuterol 2.5 MG/3 ML NEBULIZER IH PRN ×5 (00:54→22:20)
[2016-12-25] MEDS: *HR* Morphine 2 MG/ML SYRINGE IVP PRN ×3 (03:06→23:33)
[2016-12-25 05:37] LABS: Calcium 8.5 mg/dL (8.6-10.8)
[2016-12-25 05:48] LABS: Hematocrit 33.2 % (35.3-44.9); Hemoglobin 9.3 g/dL (11.5-15.4); Immature Granulocytes % 0.6 % (0-4); Lymphocytes # 0.4 K/mcL (0.6-4.6); Lymphocytes % 7.8 %; Mean Corpuscular Hemoglobin 28.5 pg (28.0-33.3); Mean Corpuscular Volume 101.8 fL (83.0-100.0); Mean Platelet Volume 11.9 fL (9.4-12.4); Monocytes # 0.3 K/mcL (0.0-1.3); Nucleated Red Blood Cells 0.4 /100 WBC (0); Platelet Count 165 K/mcL (140-400); Red Blood Count 3.26 M/mcL (3.82-4.97); Red Cell Distribution Width 16.7 % (11.5-14.5); Segmented Neutrophils % 85.6 %
[2016-12-25 06:21] LABS: Anisocytosis 1+ (Not Present); Hypochromasia Present (Not Present); Macrocytosis Present (Not Present)
[2016-12-25] MEDS: Ampicillin/Sulbactam 3,000 MG in 0.9 % Sodium Chloride Mini Bag 100 ML IVPB SCH ×4 (06:28→23:37)
[2016-12-25] MEDS: Acetaminophen 325 MG TABLET PO SCH ×4 (06:29→23:31)
[2016-12-25] MEDS: ALLOPURINOL PO SCH (07:59)
[2016-12-25] MEDS: *HR* HYDROcodone/Acet 5/325 mg TABLET PO PRN (07:59)
[2016-12-25] MEDS: Sennosides/Docusate Sodium TABLET PO SCH (08:00)
[2016-12-25] MEDS: predniSONE 20 MG TABLET PO SCH ×2 (08:00→16:41)
[2016-12-25] MEDS: Gabapentin 100 MG CAPSULE PO SCH ×3 (08:00→21:33)
[2016-12-25 08:42] LABS: ABG Oxygen Saturation 85 % (95-98); ABG PCO2 100 mmHg (35-45); ABG PO2 66 mmHg (85-104); ABG TCO2 42.1 mEq/L (20-26)
[2016-12-25 08:43] LABS: Blood Gas FiO2 36 %; Blood Gas Liter Flow 4 L/MIN
[2016-12-25] MEDS: Tiotropium 18 MCG inhalation IH SCH (08:56)
[2016-12-25] MEDS: Budesonide/Formoterol 160/4.5 MDI IH SCH ×2 (08:57→22:19)
[2016-12-25] MEDS: Nystatin Cream 15 GM TUBE TP SCH ×2 (09:19→21:33)
--- NOTE | 2016-12-25 14:04 | Internal Med Progress Note ---
Date of Encounter: 12/25/16 Time of Encounter: 13:55 - Assessment and plan (1) Panniculitis Current Visit: No Status: Acute Assessment and plan: December 25. Will increase [place] to 10/325 every 4 hours. Continue prn morphine and scheduled gabapentin, prednisone, and antibiotics. (2) Hyperuricemia Current Visit: No Status: Chronic Assessment and plan: December 25. Uric acid level returned elevated at 7.2. She stated yesterday she had not been taking allopurinol at home. It has been restarted. (3) CKD (chronic kidney disease) stage 3, GFR 30-59 ml/min Current Visit: No Status: Chronic Assessment and plan: December 25. BUN and creatinine have risen to 39 and 1.45 respectively. Increase IV fluid rate and recheck labs in a.m. (4) Hyperkalemia Current Visit: Yes Status: Acute Assessment and plan: December 25. Potassium level has improved to 6.0. Continue scheduled Kayexalate. Recheck labs in a.m. (5) Hypercapnia Current Visit: No Status: Acute Assessment and plan: December 25. ABG pH improved today. Continue BiPAP use. Recheck ABG in a.m. - Subjective Interval history: December 25. She complains of left lower abdominal pain unchanged from yesterday. - Constitutional Vitals: Temp Pulse Resp BP Pulse Ox 97.6 F 82 16 93/59 99 12/25/16 10:17 12/25/16 10:17 12/25/16 10:17 12/25/16 10:17 12/25/16 10:17 Exam: There is no visible erythema or other lesions of her abdominal wall. She has tenderness to light touch of the left lower quadrant skin and movement of the pannus overhanging. There is no tenderness in the left upper quadrant or right abdominal area. I reviewed her medications and lab results. Internal Medicine: Result - Labs CBC & Chem 7: 12/25/16 04:37 12/25/16 04:37 Labs: Short CBC 12/25/16 Range/Units 04:37 WBC 4.6 (4.3-11.1) K/mcL Hgb 9.3 L D (11.5-15.4) g/dL Hct 33.2 L (35.3-44.9) % Plt Count 165 (140-400) K/mcL Neutrophils # 4.0 (1.6-8.9) K/mcL BMP 12/25/16 04:37 Sodium 137 Potassium 6.0 H Chloride 93 L Carbon Dioxide 34 H BUN 39 H Creatinine 1.45 H Glucose 220 H Calcium 8.5 L - ABG Interpretation ABG results: ABG ABG pH 7.20 pH Units (7.32-7.45) L* 12/25/16 08:00 ABG pCO2 100 mmHg (35-45) H* 12/25/16 08:00 ABG pO2 66 mmHg (85-104) L 12/25/16 08:00 ABG O2 Saturation 85 % (95-98) L 12/25/16 08:00 PT/INR, D-dimer PT 11.6 Seconds (9.4-12.1) 12/24/16 05:42 Consult Discharge Plan - Plan Referrals: Silvestre Kurtz, [employer]IL TRACTOR OPERATOR [Primary Care Provider] - 1 week
[2016-12-25] MEDS: *HR* HYDROcodone/Acet 10/325 mg TABLET PO PRN (18:19)
[2016-12-26 05:19] LABS: Hematocrit 32.5 % (35.3-44.9); Hemoglobin 9.3 g/dL (11.5-15.4); Immature Granulocytes % 0.2 % (0-4); Lymphocytes # 0.6 K/mcL (0.6-4.6); Lymphocytes % 12.5 %; Mean Corpuscular HGB Conc 28.6 g/dL (31.6-35.5); Mean Corpuscular Hemoglobin 28.4 pg (28.0-33.3); Mean Corpuscular Volume 99.1 fL (83.0-100.0); Mean Platelet Volume 10.5 fL (9.4-12.4); Monocytes # 0.3 K/mcL (0.0-1.3); Monocytes % 6.9 %; Neutrophils # 3.7 K/mcL (1.6-8.9); Nucleated Red Blood Cells 0.6 /100 WBC (0); Platelet Count 147 K/mcL (140-400); Red Blood Count 3.28 M/mcL (3.82-4.97); Red Cell Distribution Width 16.5 % (11.5-14.5); Segmented Neutrophils % 80.4 %
[2016-12-26] MEDS: Acetaminophen 325 MG TABLET PO SCH (05:25)
[2016-12-26] MEDS: Ampicillin/Sulbactam 3,000 MG in 0.9 % Sodium Chloride Mini Bag 100 ML IVPB SCH (05:25)
[2016-12-26] MEDS: *HR* Morphine 2 MG/ML SYRINGE IVP PRN (05:27)
[2016-12-26 05:37] LABS: Calcium 8.4 mg/dL (8.6-10.8); Potassium 4.8 mEq/L (3.5-4.5)
[2016-12-26 06:33] LABS: Hypochromasia Present (Not Present)
[2016-12-26 06:34] LABS: Anisocytosis 1+ (Not Present)
[2016-12-26 06:35] LABS: Macrocytosis Present (Not Present)
[2016-12-26 06:36] LABS: Basophilic Stippling 1+ (Not Present)
[2016-12-26 06:37] LABS: Poikilocytosis 1+ (Not Present)
[2016-12-26 07:06] LABS: Stomatocytes 1+ (Not Present)
[2016-12-26 07:40] VITALS: BP 106/67
[2016-12-26] MEDS: Sennosides/Docusate Sodium TABLET PO SCH (08:30)
[2016-12-26] MEDS: Gabapentin 100 MG CAPSULE PO SCH (08:30)
[2016-12-26] MEDS: predniSONE 20 MG TABLET PO SCH (08:31)
[2016-12-26] MEDS: ALLOPURINOL PO SCH (08:31)
[2016-12-26 08:32] LABS: ABG PH 7.29 pH Units (7.32-7.45)
[2016-12-26 08:33] LABS: ABG PCO2 80 mmHg (35-45); ABG PO2 62 mmHg (85-104)
[2016-12-26] MEDS: Nystatin Cream 15 GM TUBE TP SCH (08:33)
[2016-12-26 08:34] LABS: ABG Base Excess 12.1 mEq/L (-2.0 to 3.0); ABG HCO3 38.6 mEQ/L (21-27); ABG Oxygen Saturation 87 % (95-98); ABG TCO2 41.1 mEq/L (20-26); Blood Gas FiO2 36 %; Blood Gas Liter Flow 4 L/MIN
[2016-12-26] MEDS: Albuterol 2.5 MG/3 ML NEBULIZER IH PRN (08:42)
[2016-12-26] MEDS: Budesonide/Formoterol 160/4.5 MDI IH SCH (08:49)
[2016-12-26] MEDS: Tiotropium 18 MCG inhalation IH SCH (08:49)
[2016-12-26] MEDS: *HR* HYDROcodone/Acet 10/325 mg TABLET PO PRN (09:44)
--- NOTE | 2016-12-26 10:22 | Discharge Summary ---
Date of Encounter: 12/26/16 Time of Encounter: 10:05 - Discharge Diagnosis (1) Panniculitis Priority: Primary Status: Acute (2) Hyperuricemia Priority: Secondary Status: Chronic (3) CKD (chronic kidney disease) stage 3, GFR 30-59 ml/min Priority: Secondary Status: Chronic (4) Hyperkalemia Priority: Secondary Status: Acute (5) Hypercapnia Priority: Secondary Status: Acute - Discharge Medications Prescriptions: Albuterol Neb [Proventil Neb] 2.5 mg IH Q2H PRN #60 vial.neb PRN Reason: Dyspnea Albuterol Sulfate [Ventolin Hfa] 18 gm IH Q4H PRN #1 hfa.aer.ad PRN Reason: Dyspnea Allopurinol [Zyloprim 100 MG] 400 mg PO DAILY #120 tablet Amoxicillin/Clavulanate [Augmentin] 875 mg PO BIDWM #6 tablet Fluticasone/Vilanterol [Breo Ellipta 100-25 Mcg INH] 1 each IH DAILY 30 Days Gabapentin [Neurontin] 200 mg PO TID #30 capsule HYDROcodone/Acet 10/325 mg [[place] 10-325 mg] 1 each PO Q4H PRN #12 tablet PRN Reason: Pain Lactobacillus [Culturelle] 1 each PO BID #6 cap.sprink Metoprolol [Lopressor] 12.5 mg PO BID #30 tablet Montelukast [Singulair] 10 mg PO DAILY #30 tablet Theophylline Anhydrous [Theodur] 300 mg PO BID #60 tab.er.12h Tiotropium [Spiriva] 18 mcg IH DAILY #30 inh Home Medications: Omeprazole [PriLOSEC] 20 mg PO DAILY 02/23/16 [History] Oxygen 3 l NS AD 02/23/16 [History] MOM Conc [MILK OF MAGNESIA conc] 10 ml PO DAILY PRN #300 ud.liq 02/26/16 [Rx] Sennosides/Docusate Sodium [Senna Plus] 2 each PO DAILY 30 Days 02/26/16 [Rx] Albuterol Neb [Proventil Neb] 2.5 mg IH Q2H PRN #60 vial.neb 12/26/16 [Rx] Albuterol Sulfate [Ventolin Hfa] 18 gm IH Q4H PRN #1 hfa.aer.ad 12/26/16 [Rx] Allopurinol [Zyloprim 100 MG] 400 mg PO DAILY #120 tablet 12/26/16 [Rx] Amoxicillin/Clavulanate [Augmentin] 875 mg PO BIDWM #6 tablet 12/26/16 [Rx] Fluticasone/Vilanterol [Breo Ellipta 100-25 Mcg INH] 1 each IH DAILY 30 Days [Rx] Gabapentin [Neurontin] 200 mg PO TID #30 capsule 12/26/16 [Rx] HYDROcodone/Acet 10/325 mg [[place] 10-325 mg] 1 each PO Q4H PRN #12 tablet [Rx] Lactobacillus [Culturelle] 1 each PO BID #6 cap.sprink 12/26/16 [Rx] Metoprolol [Lopressor] 12.5 mg PO BID #30 tablet 12/26/16 [Rx] Montelukast [Singulair] 10 mg PO DAILY #30 tablet 12/26/16 [Rx] Theophylline Anhydrous [Theodur] 300 mg PO BID #60 tab.er.12h 12/26/16 [Rx] Tiotropium [Spiriva] 18 mcg IH DAILY #30 inh 12/26/16 [Rx] Allergies/Adverse Reactions: Allergies No Known Allergies Allergy (Verified 12/08/16 21:09) Date of admission: 12/23/16 16:49 Primary care physician: Silvestre Kurtz CNP Consults: 12/23/16 18:30 Consult to Bariatric Surgeon [CONS] Routine Reason for SW Consult: Discharge planning - Patient Status Disposition: Home, Self-Care Condition: Fair Functional capacity at discharge: independent ambulation Overall status at discharge: patient is progressing back to baseline - Discharge Instructions Follow Up With: Silvestre Kurtz CNP [Primary Care Provider] - 1 week - Diet and Activity Activity: resume usual activities as tolerated, wear oxygen at all times Diet: advance to your usual diet Hospital course: Ms. Munoz is a 46 year old female who came to emergency room stating she has had LLQ abdominal pain for approximately 3 weeks. She reports it was present when she was discharged from [facility] December 02. It worsened approximately 3-4 days ago. She reports she has had "runny bowel movements" for the last 4 days. She denies any melena or hematochezia or hematemesis. She has vomited 3 times since the pain worsened. She dates the pain is sudden in onset and last a few minutes to hours and then abruptly resolves. It does not occur on a daily basis. It is not related to position or food. She was evaluated emergency room and admitted to [facility] for ongoing care needs. Initial orders were written by the emergency room physician. I saw her on December 24 and performed the history and physical. She was started on IV Unasyn. I added prednisone and Neurontin. She had gradual improvement in the left lower quadrant abdominal pain which I thought was due to panniculitis. She will be discharged home on 3 additional days of antibiotics, probiotic and continue Neurontin for a total of 30 pills. I also gave her 12 Percocet pills at discharge for when necessary use. Uric acid level returned elevated at 7.2. She will resume allopurinol 400 mg daily. She was given Kayexalate and potassium level had improved to 4.8 by the day of discharge. Her creatinine was improved to 1.30 at discharge with estimated GFR 45. She was placed on BiPAP and blood gas showed significant improvement with pH 7.29, PCO2 80, and PO2 of 62 on the day of discharge. She will be discharged home and follow with her PCP Silvestre Kurtz CNP within 1 week. - Time Spent with Patient Total time spent providing and/or coordinating discharge services: - Constitutional Vitals: Temp Pulse Resp BP Pulse Ox 98.0 F 90 16 106/67 92 12/26/16 06:35 12/26/16 06:35 12/26/16 08:50 12/26/16 06:35 12/26/16 08:50
== END 2016-12-26 12:34 | disposition home or self-care (01) ==
LOC: EMEROOPIK 12:28 → INPPIK 12:28
PROVIDERS: ADMIT Internal Medicine; ATTEND Internal Medicine

== ENCOUNTER 2017-01-03 20:00 | Observation (INO) ==
[2017-01-03] MEDS ORDERED: Ipratropium/Albuterol Neb 3 ML IH ONE (20:11)
[2017-01-03] MEDS ORDERED: Vancomycin 1,000 MG in D5% in Water 250 ML IVPB ONE (20:11)
[2017-01-03] MEDS ORDERED: Albuterol 2.5 MG/3 ML NEBULIZER IH ONE (20:11)
[2017-01-03] MEDS ORDERED: Ondansetron 4 MG/2 ML VIAL IVP ONE (20:12)
[2017-01-03] MEDS ORDERED: *HR* Morphine 2 MG/ML SYRINGE IVP ONE (20:12)
--- NOTE | 2017-01-03 20:17 | Emergency Department Note ---
Disposition Clinical Impression: Abdominal wall cellulitis, COPD exacerbation Disposition: Admitted As Inpatient Condition: Good Time of Disposition: 22:17 Skin/Abscess/FB HPI Chief complaint: ED Shortness of Breath/Dyspnea Stated complaint: abd swelling Time Seen by Provider: 01/03/17 20:05 Source: patient Mode of arrival: EMS Limitations: no limitations Nursing Notes Reviewed: Yes Vital Signs Reviewed: Yes HPI Narrative: 46-year-old female presents complaining of abdominal swelling, redness, and pain. She has had symptoms for over week. She was seen here, treated and admitted for a panniculitis. She states that it was somewhat improved, but did not discharge is gotten worse. She complains of pain, redness, and swelling of her abdomen. She denies fever. Pt Subjective Complaint: other (Redness on her abdominal wall) Onset (ago): week(s) (1) Location: Abdomen Severity: severe Quality: burning, sharp Consistency: constant Improves with: none Worsens with: palpation, movement Context: none Associated symptoms: Reports: other Treatments prior to arrival: other (Swelling hospitalized last week) Home Medications Medication Instructions Recorded Confirmed Omeprazole [PriLOSEC] 20 mg PO DAILY 02/23/16 01/03/17 Oxygen 3 l NS AD 02/23/16 01/03/17 Previous Rx's Medication Instructions Recorded MOM Conc [MILK OF MAGNESIA conc] 10 ml PO DAILY PRN #300 ud.liq 02/26/16 Sennosides/Docusate Sodium [Senna 2 each PO DAILY 30 Days 02/26/16 Plus] Albuterol Neb [Proventil Neb] 2.5 mg IH Q2H PRN #60 vial.neb 12/26/16 Albuterol Sulfate [Ventolin Hfa] 18 gm IH Q4H PRN #1 hfa.aer.ad 12/26/16 Allopurinol [Zyloprim 100 MG] 400 mg PO DAILY #120 tablet 12/26/16 Amoxicillin/Clavulanate [Augmentin] 875 mg PO BIDWM #6 tablet 12/26/16 Fluticasone/Vilanterol [Breo 1 each IH DAILY 30 Days 12/26/16 Ellipta 100-25 Mcg INH] Gabapentin [Neurontin] 200 mg PO TID #30 capsule 12/26/16 HYDROcodone/Acet 10/325 mg [[place] 1 each PO Q4H PRN #12 tablet 12/26/16 10-325 mg] Lactobacillus [Culturelle] 1 each PO BID #6 cap.sprink 12/26/16 Metoprolol [Lopressor] 12.5 mg PO BID #30 tablet 12/26/16 Montelukast [Singulair] 10 mg PO DAILY #30 tablet 12/26/16 Theophylline Anhydrous [Theodur] 300 mg PO BID #60 tab.er.12h 12/26/16 Tiotropium [Spiriva] 18 mcg IH DAILY #30 inh 12/26/16 Allergies Allergy/AdvReac Type Severity Reaction Status Date / Time morphine AdvReac Intermediate See Verified 01/03/17 21:05 Comments All systems ED: reviewed and negative except as stated. Constitutional: Denies: fever, chills Cardiovascular: Denies: chest pain Respiratory: Reports: cough, dyspnea, wheezes Gastrointestinal: Reports: abdominal pain. Denies: nausea, vomiting Integumentary: Reports: other (Erythema of the abdominal wall) Past Medical History - Past Medical History Medical history: Reports: arthritis, asthma, cardiomyopathy, CHF, COPD, diabetes , GERD, hypertension, osteoporosis, peripheral artery disease, venous stasis, other Surgical history: Reports: herniorrhaphy, other Psychiatric history: Reports: anxiety, depression RN STARS history: Reports: no RN STARS history - Social History Smoking Status: Former smoker Smokeless Tobacco Status: No Alcohol use: Reports: none Drug use: Reports: marijuana Physical Exam - General Limitations: no limitations General appearance: alert, in no apparent distress, anxious - Head Head exam: atraumatic, normocephalic - Eye Eye exam: Present: PERRL, EOMI. Absent: scleral icterus, conjunctival injection - ENT ENT exam: normal oropharynx, mucous membranes moist - Neck Neck exam: Present: normal inspection, full ROM, trachea midline. Absent: lymphadenopathy - Respiratory Respiratory exam: Present: wheezes (Mild bilateral expiratory), prolonged expiratory phase - Abdominal Exam Abdominal exam: Present: tenderness (Diffuse mid and lower abdominal tenderness. There is diffuse edema of the mid lower abdominal wall bilaterally. There is diffuse erythema of the mid and lower abdominal wall extending beneath the panniculus onto the mons pubis. Some induration in the central lower abdomen below the umbilicus but no fluctuance. No crepitance.), guarding. Absent: organomegaly, mass - Extremities Exam Extremities exam: Present: normal inspection, pedal edema - Neurological Exam Neurological exam: Present: alert, oriented X3. Absent: motor sensory deficit - Psychiatric Psychiatric exam: Present: agitated, anxious - Skin Skin exam: Present: warm, dry, erythema (Abdominal wall ) Course - Reevaluation(s) Reevaluation #1: Discussed with Dr. Sutherland. He accepts the patient for admission. Time: 22:16 Vital Signs Temperature 98.4 F 01/03/17 20:02 Pulse Rate 119 01/03/17 20:02 Respiratory Rate 26 01/03/17 20:02 Blood Pressure 104/68 01/03/17 20:02 O2 Sat by Pulse Oximetry 86 01/03/17 20:02 Temperature 98.4 F 01/03/17 22:07 Pulse Rate 119 01/03/17 23:15 Respiratory Rate 16 01/03/17 23:15 Blood Pressure 108/56 01/03/17 23:15 O2 Sat by Pulse Oximetry 86 01/03/17 23:15 Oxygen Delivery Oxygen Delivery Bipap Skin/Abscess/Foreign Body - MDM Narrative Medical decision making narrative: Differential includes but is not limited to cellulitis, abscess, panniculitis, dermatitis, sari dermatitis - Lab Data Lab results reviewed: Yes I reviewed the patient's lab results. Result diagrams: 01/03/17 20:25 01/03/17 20:25 Lab Results 01/03/17 01/03/17 01/03/17 Range/Units 20:25 20:25 20:25 WBC 6.4 (4.3-11.1) K/mcL RBC 3.43 L (3.82-4.97) M/mcL Hgb 9.7 L (11.5-15.4) g/dL Hct 34.1 L (35.3-44.9) % MCV 99.4 (83.0-100.0) fL MCH 28.3 (28.0-33.3) pg MCHC 28.4 L (31.6-35.5) g/dL RDW 17.3 H (11.5-14.5) % Plt Count 213 (140-400) K/mcL MPV 10.9 (9.4-12.4) fL Immature Gran % 0.3 (0-4) % Seg Neutrophils % 70.7 % Lymphocytes % 20.9 % Monocytes % 6.6 % Eosinophils % 0.9 % Basophils % 0.6 % Neutrophils # 4.5 (1.6-8.9) K/mcL Lymphocytes # 1.3 (0.6-4.6) K/mcL Monocytes # 0.4 (0.0-1.3) K/mcL Eosinophils # 0.1 (0.0-0.6) K/mcL Basophils # 0.0 (0.0-0.2) K/mcL Nucleated RBCs/100 WBC 0.5 H (0) /100 WBC Platelet Estimate Normal (Normal) Polychromasia 1+ A (Not Present) Hypochromasia Present A (Not Present) Basophilic Stippling 2+ A (Not Present) Anisocytosis 1+ A (Not Present) Macrocytosis Present A (Not Present) Stomatocytes 1+ A (Not Present) VBG Lactic Acid 0.7 (0.5-2.2) mmol/L Sodium 137 (136-145) mEq/L Potassium 6.2 H (3.5-4.5) mEq/L Chloride 96 L (98-109) mEq/L Carbon Dioxide 33 H (19-29) mEq/L BUN 31 H (7-20) mg/dL Creatinine 1.52 H (0.57-1.11) mg/dL Est GFR ( Amer) 45 L (> 60) Est GFR (Non-Af Amer) 37 L (> 60) BUN/Creatinine Ratio 20 (6-26) Glucose 156 H (70-99) mg/dL Calculated Osmolality 294 (280-300) Calcium 9.2 (8.6-10.8) mg/dL Total Bilirubin 0.4 (0.2-1.2) mg/dL AST 11 (5-34) Units/L ALT 13 (0-55) Units/L Alkaline Phosphatase 102 (38-126) Units/L Serum Total Protein 6.7 (6.0-8.3) g/dL Albumin 3.1 L (3.5-5.0) g/dL Globulin 3.6 H (2.4-3.5) g/dL Albumin/Globulin Ratio 0.9 L (1.1-2.2) - Radiology Data Radiology results reviewed: Yes I reviewed the patient's radiology results. ITS Impressions Chest X-Ray 01/03/17 20:12 IMPRESSION: Mild degree of pulmonary vascular congestion without overt pulmonary edema. Stable cardiomegaly. D/ / 01/03/2017 21:43:10 Dano Ortiz MD / anne Interpreting Provider: Dano Ortiz MD Abdomen/Pelvis CT 01/03/17 21:06 IMPRESSION: Limited exam secondary to patient body habitus as above. Mildly nodular contour to the liver redemonstrated concerning for cirrhosis. Stable mild splenomegaly which may relate to portal hypertension. Small volume ascites appears similar to prior exam. Cholelithiasis without definite CT evidence for acute cholecystitis. Stable cardiomegaly. Anasarca, similar to prior exam. D/ / 01/03/2017 21:49:08 Dano Ortiz MD / anne Interpreting Provider: Dano Ortiz MD - EKG Data EKG attestation: Yes I reviewed and interpreted this EKG. EKG results narrative: Sinus tachycardia, rate of 101, incomplete right bundle-branch block, left anterior fascicular block. Age indeterminate anterior myocardial infarction. Nonspecific T-wave flattening. Rhythm strip shows sinus rhythm with rate of 101 , tachycardic, GA interval 166 ms, QRS 115 ms with no other ectopy as interpreted by me.
[2017-01-03 20:34] LABS: Basophils % 0.6 %; Eosinophils # 0.1 K/mcL (0.0-0.6); Eosinophils % 0.9 %; Hematocrit 34.1 % (35.3-44.9); Hemoglobin 9.7 g/dL (11.5-15.4); Immature Granulocytes % 0.3 % (0-4); Lymphocytes # 1.3 K/mcL (0.6-4.6); Lymphocytes % 20.9 %; Mean Corpuscular HGB Conc 28.4 g/dL (31.6-35.5); Mean Corpuscular Hemoglobin 28.3 pg (28.0-33.3); Mean Corpuscular Volume 99.4 fL (83.0-100.0); Mean Platelet Volume 10.9 fL (9.4-12.4); Monocytes # 0.4 K/mcL (0.0-1.3); Monocytes % 6.6 %; Neutrophils # 4.5 K/mcL (1.6-8.9); Nucleated Red Blood Cells 0.5 /100 WBC (0); Platelet Count 213 K/mcL (140-400); Red Blood Count 3.43 M/mcL (3.82-4.97); Red Cell Distribution Width 17.3 % (11.5-14.5); Segmented Neutrophils % 70.7 %
[2017-01-03 20:54] LABS: Anisocytosis 1+ (Not Present); Macrocytosis Present (Not Present)
[2017-01-03 20:58] LABS: Basophilic Stippling 2+ (Not Present); Polychromasia 1+ (Not Present); Stomatocytes 1+ (Not Present)
[2017-01-03 20:59] LABS: Hypochromasia Present (Not Present)
[2017-01-03 21:00] LABS: Platelet Estimate Normal (Normal)
[2017-01-03 21:04] LABS: Albumin 3.1 g/dL (3.5-5.0); Albumin/Globulin Ratio 0.9 (1.1-2.2); Bilirubin,Total 0.4 mg/dL (0.2-1.2); Calcium 9.2 mg/dL (8.6-10.8); Globulin 3.6 g/dL (2.4-3.5); Potassium 6.2 mEq/L (3.5-4.5); Total Protein 6.7 g/dL (6.0-8.3)
[2017-01-03] MEDS ORDERED: 0.9 % Sodium Chloride 500 ML IVC STA (22:19)
[2017-01-04] MEDS ORDERED: Naloxone 0.4 MG/ML INJ IVP PRN (00:46)
[2017-01-04] MEDS ORDERED: MOM Conc 10 ML UD.LIQ PO PRN (00:46)
[2017-01-04] MEDS ORDERED: NON-FORMULARY MEDICATION 1 EACH EACH (Oxygen [Oxygen] 3 L) NS SCH (00:46)
[2017-01-04] MEDS ORDERED: Vancomycin 2,000 MG in D5% in Water 250 ML IVPB SCH (00:46)
[2017-01-04] MEDS ORDERED: 0.9 % Sodium Chloride 1,000 ML IVC SCH ×3 (00:46→10:36)
[2017-01-04] MEDS ORDERED: Ondansetron 4 MG/2 ML VIAL IVP PRN (00:46)
[2017-01-04] MEDS: Ipratropium/Albuterol Neb 3 ML IH SCH ×4 (01:28→13:28)
[2017-01-04] MEDS ORDERED: Vancomycin 1,000 MG in D5% in Water 250 ML IVPB ONE (02:00)
[2017-01-04] MEDS: *HR* HYDROcodone/Acet 10/325 mg TABLET PO PRN ×2 (03:03→10:27)
[2017-01-04 06:38] LABS: Calcium 8.8 mg/dL (8.6-10.8); Potassium 6.1 mEq/L (3.5-4.5)
[2017-01-04] MEDS: *HR* Enoxaparin 40 MG/0.4 ML SYRINGE SQ SCH (06:41)
[2017-01-04] MEDS: ALLOPURINOL PO SCH (08:13)
[2017-01-04] MEDS: Sennosides/Docusate Sodium TABLET PO SCH (08:14)
[2017-01-04] MEDS: Gabapentin 100 MG CAPSULE PO SCH ×3 (08:14→20:16)
[2017-01-04] MEDS ORDERED: Lactobacillus 1 EACH CAP.SPRINK PO SCH (09:00)
[2017-01-04] MEDS ORDERED: Vancomycin 1,500 MG in D5% in Water 250 ML IVPB SCH (10:00)
[2017-01-04] MEDS: *HR* OxyCODONE/APAP 10/325 TABLET PO PRN ×2 (14:05→18:23)
--- NOTE | 2017-01-04 14:44 | Internal Med History&Physical ---
Date of Encounter: 01/04/17 Time of Encounter: 14:10 Assessment and Plan (1) Abdominal wall cellulitis Current visit: Yes Status: Acute She has been started on vancomycin. I will change her to IV Ancef and doxycycline. Will also order lactobacillus (2) Hyperuricemia Current visit: No Status: Chronic Continue allopurinol (3) CKD (chronic kidney disease) stage 3, GFR 30-59 ml/min Current visit: No Status: Chronic We will monitor renal indices. (4) Hyperkalemia Current visit: No Status: Acute We will give Kayexalate and monitor labs. (5) Anemia Current visit: Yes Status: Acute We will check anemia testing in a.m. Qualifiers: Anemia type: unspecified type Qualified Code(s): D64.9 - Anemia, unspecified (6) Vitamin D deficiency Current visit: Yes Status: Acute Vitamin D level was 6 on 05/28/2016. We will recheck in a.m. (7) Hypothyroidism Current visit: Yes Status: Acute TSH was 7.445 on 07/19/2016. We will recheck in a.m. Qualifiers: Hypothyroidism type: unspecified Qualified Code(s): E03.9 - Hypothyroidism , unspecified Internal Medicine - H&P: HPI Chief complaint: Leg swelling and abdominal pain Admitted From: Home Plans for Post Hospital Care: Home History of present illness: Ms. Munoz is a 46 year old female who came to the hospital stating she had onset of abdominal pain with bilateral lower leg swelling proximately 2 days after being discharged from the hospital December 26. She did not seek medical attention immediately. She states she attempted to get a follow-up appointment as directed one week after discharge from the hospital but was told she could not be seen before January 11. She came to emergency room and was evaluated and felt to have cellulitis of the abdominal wall. She was admitted to [facility] floor for ongoing care needs. She has been admitted to [facility] 10 times since March 2014. Admissions have generally been due to dyspnea. She was hospitalized most recently December 23 with left lower abdominal wall pain. She was treated with IV antibiotics during hospitalization and given 3 days of antibiotic at discharge. She did not follow with her PCP as per above. Past Med Surg Social Fam HX - Past Medical History Medical history: arthritis, asthma, cardiomyopathy, CHF, COPD, diabetes, GERD, hypertension, osteoporosis, peripheral artery disease, venous stasis, other Psychiatric history: anxiety, depression - Past Surgical History Surgical History: herniorrhaphy, other - Social History Smoking Status: Former smoker Smokeless Tobacco Status: No Alcohol use: none Drug use: marijuana - Family History Son Adopted: No Family Member Ethnicity: Non- Living Status: Still Living Hx Family Cardiac Disorders: Yes Hx Family Respiratory Disorders: Yes Hx Family Cancer: No Hx Family GI Disorders: No Hx Family Endocrine Disorder: Yes Hx Family Neuromuscular Disorders: No Hx Family Neurologic Disorders: No Hx Family HEENT Disorders: No Hx Family Autoimmune Disorders: No Father Living Status: Hx Family Cardiac Disorders: Yes (enlarged heart) Hx Family Cancer: Yes (Lung and rectal cancer) Hx Family Endocrine Disorder: Yes (diabetic) Mother Living Status: Hx Family Cardiac Disorders: Yes (stents) Hx Family GI Disorders: Yes (GI bleed) Hx Family Endocrine Disorder: Yes (diabetic) Internal Medicine - H&P: Meds Omeprazole [PriLOSEC] 20 mg PO DAILY 02/23/16 [History] Oxygen 3 l NS AD 02/23/16 [History] MOM Conc [MILK OF MAGNESIA conc] 10 ml PO DAILY PRN #300 ud.liq 02/26/16 [Rx] Sennosides/Docusate Sodium [Senna Plus] 2 each PO DAILY 30 Days 02/26/16 [Rx] Albuterol Neb [Proventil Neb] 2.5 mg IH Q2H PRN #60 vial.neb 12/26/16 [Rx] Albuterol Sulfate [Ventolin Hfa] 18 gm IH Q4H PRN #1 hfa.aer.ad 12/26/16 [Rx] Allopurinol [Zyloprim 100 MG] 400 mg PO DAILY #120 tablet 12/26/16 [Rx] Amoxicillin/Clavulanate [Augmentin] 875 mg PO BIDWM #6 tablet 12/26/16 [Rx] Fluticasone/Vilanterol [Breo Ellipta 100-25 Mcg INH] 1 each IH DAILY 30 Days [Rx] Gabapentin [Neurontin] 200 mg PO TID #30 capsule 12/26/16 [Rx] HYDROcodone/Acet 10/325 mg [[place] 10-325 mg] 1 each PO Q4H PRN #12 tablet [Rx] Lactobacillus [Culturelle] 1 each PO BID #6 cap.sprink 12/26/16 [Rx] Metoprolol [Lopressor] 12.5 mg PO BID #30 tablet 12/26/16 [Rx] Montelukast [Singulair] 10 mg PO DAILY #30 tablet 12/26/16 [Rx] Theophylline Anhydrous [Theodur] 300 mg PO BID #60 tab.er.12h 12/26/16 [Rx] Tiotropium [Spiriva] 18 mcg IH DAILY #30 inh 12/26/16 [Rx] Allergies morphine Adverse Reaction (Intermediate, Verified 01/03/17 21:05) See Comments shallow breathing requires bipap All Systems PM: A 10-system review of systems was performed and is negative for pertinent findings except as documented above in the HPI. Review of systems: Gen.: Recorded weights during hospitalization are of questionable reliability. Her reported weight 12/25/2016 was 127.414 kg with weight on admission 2016 158.757 kg Cardiovascular: She denies [place] hypertension heart failure DVT or pulmonary embolus. She claims she had a heart catheterization 2006 at [facility] which was unremarkable. She had an echocardiogram during her January 2016 [facility] stay which showed LVEF of 40%. There was indeterminant diastolic function seen. There was elevated RVSP estimate of 54 mmHg. There was [id number] tricuspid regurgitation. Respiratory: She states she smoked from age 12 until approximately 3 months ago. She smoked up to 4 packs per day. She has been diagnosed with COPD with PFTs done approximately 2007. She wears oxygen by nasal cannula 24/7 at 2 L/m and uses CPAP at bedtime for PATRICIO at settings of 18/14. Her most recent chest CT was 02/06/2016. GI: She has GERD but denies disorders of her liver or exocrine pancreas. She has a gallstone without evidence of cholecystitis on abdominal/pelvic CT done in the emergency room. She has hepatosplenomegaly and anasarca. She has had previous abdominal wall hernia repair. : No history of hematuria dysuria or kidney stones. She has CKD3 and follows with a [facility]. Neurologic: No history of large distribution strokes or seizures Endocrine: She was diagnosed with DM 2 approximately 1993. She has hyperlipidemia but cannot tolerate statin drugs. She denies thyroid disease but TSH was elevated at 7.445 on 07/19/2016. Vitamin D level was low at 6 on .. Hematology/oncology: No history of blood disorders cancers or anemia Psychiatric: She has anxiety and depression and follows at mental health clinic [place] skeletal: She has no significant arthritis or osteoporosis. She has been diagnosed with hyperuricemia. She does complain of chronic low back pain - Constitutional Vitals: Temp Pulse Resp BP Pulse Ox 97.1 F L 75 18 120/90 91 01/04/17 14:08 01/04/17 14:08 01/04/17 14:08 01/04/17 14:08 01/04/17 14:08 Exam: General: She is a well-developed morbidly obese female sitting on the side of the bed who appears in minimal distress overall. She becomes very dramatic and tearful when she describes the swelling in her feet and pain in her abdominal wall. HEENT: Head is atraumatic and normocephalic. Eyes: EOMI. There is no scleral icterus. Mouth: Mucosa is moist. Neck: She has a large neck. There is no thyromegaly or adenopathy noted. Heart: Regular without murmurs gallops or ectopics. Lungs: No wheezes or crackles are heard. Abdomen: She has a very large abdomen. There is slight erythema of the lower abdominal wall. She has tenderness to palpation of the abdominal wall more on the left side than the right. Extremities: She has 1+ edema of the dorsum the feet and lower anterior shins bilaterally. Dorsalis pedis and posterior tibial pulses are nonpalpable Neurologic: Mental status: She is talkative and emotional. She seems to be a fairly good historian. Cranial nerves: Smile is symmetric. Forehead wrinkles bilaterally. Tongue protrudes midline. EOMI. Motor: There is no pronator drift. Cerebellar: Finger to nose is intact bilaterally. Skin: Warm and dry Internal Med - H&P Results - Labs CBC & Chem 7: 01/03/17 20:25 01/04/17 05:25 Labs: BMP 01/04/17 01/04/17 00:05 05:25 Sodium 139 Potassium 6.2 H 6.1 H Chloride 97 L Carbon Dioxide 33 H BUN 32 H Creatinine 1.61 H Glucose 158 H Calcium 8.8
[2017-01-04] MEDS ORDERED: ceFAZolin 2,000 MG in D5% in Water 100 ML IVPB SCH (16:00)
[2017-01-04] MEDS: Albuterol 2.5 MG/3 ML NEBULIZER IH PRN ×2 (17:35→21:46)
[2017-01-04] MEDS: Doxycycline 100 MG in 0.9 % Sodium Chloride Mini Bag 100 ML IVPB SCH (18:22)
[2017-01-04] MEDS: Lactobacillus 1 EACH CAP.SPRINK PO SCH (20:16)
[2017-01-04] MEDS: ceFAZolin 2,000 MG in D5% in Water 100 ML IVPB SCH (23:32)
--- NOTE | 2017-01-05 00:05 | Electrocardiograph Report ---
[address] [place], [place] [address] Test Date: 2017-01-03 Pat Name: Kathy Munoz Department: 9201 Room: [facility] Gender: F [employer] Operator: Kim : 1970 Requested By: Josr Da Silva Order Number: [id number] Reading MD: Antonina Chatman Measurements Intervals Addison Rate: 101 P: -10 OR: 166 QRS: -52 QRSD: 115 T: 31 QT: 353 QTc: 411 Interpretive Statements SINUS TACHYCARDIA LOW QRS VOLTAGE INCOMPLETE RIGHT BUNDLE BRANCH BLOCK LEFT ANTERIOR FASCICULAR BLOCK Electronically Signed On 01-05-2017 0:03:40 EDT by Antonina Chatman
[2017-01-05] MEDS: *HR* OxyCODONE/APAP 10/325 TABLET PO PRN (05:04)
[2017-01-05] MEDS: Doxycycline 100 MG in 0.9 % Sodium Chloride Mini Bag 100 ML IVPB SCH ×2 (05:05→21:58)
[2017-01-05] MEDS: *HR* Enoxaparin 40 MG/0.4 ML SYRINGE SQ SCH (05:05)
[2017-01-05 07:33] LABS: Albumin 2.9 g/dL (3.5-5.0); Albumin/Globulin Ratio 0.9 (1.1-2.2); Bilirubin,Total 0.4 mg/dL (0.2-1.2); Calcium 8.8 mg/dL (8.6-10.8); Globulin 3.4 g/dL (2.4-3.5); Potassium 5.8 mEq/L (3.5-4.5); Total Protein 6.3 g/dL (6.0-8.3)
[2017-01-05 07:36] LABS: Basophils % 0.7 %; Eosinophils # 0.1 K/mcL (0.0-0.6); Eosinophils % 1.2 %; Hematocrit 34.2 % (35.3-44.9); Hemoglobin 9.5 g/dL (11.5-15.4); Immature Granulocytes % 0.3 % (0-4); Lymphocytes # 1.1 K/mcL (0.6-4.6); Lymphocytes % 19.5 %; Mean Corpuscular HGB Conc 27.8 g/dL (31.6-35.5); Mean Corpuscular Hemoglobin 28.2 pg (28.0-33.3); Mean Corpuscular Volume 101.5 fL (83.0-100.0); Mean Platelet Volume 11.6 fL (9.4-12.4); Monocytes # 0.4 K/mcL (0.0-1.3); Monocytes % 7.3 %; Neutrophils # 4.1 K/mcL (1.6-8.9); Nucleated Red Blood Cells 0.5 /100 WBC (0); Platelet Count 212 K/mcL (140-400); Red Blood Count 3.37 M/mcL (3.82-4.97); Red Cell Distribution Width 17.6 % (11.5-14.5)
[2017-01-05 07:53] LABS: Thyroid Stimulating Hormone 2.266 mcIU/mL (0.350-4.840)
[2017-01-05 08:02] LABS: Anisocytosis 1+ (Not Present); Hypochromasia Present (Not Present)
[2017-01-05] MEDS: Albuterol 2.5 MG/3 ML NEBULIZER IH PRN ×4 (08:04→21:00)
[2017-01-05] MEDS: Sennosides/Docusate Sodium TABLET PO SCH (08:07)
[2017-01-05] MEDS: ceFAZolin 2,000 MG in D5% in Water 100 ML IVPB SCH ×2 (08:22→16:26)
[2017-01-05] MEDS: ALLOPURINOL PO SCH (08:27)
[2017-01-05] MEDS: Gabapentin 100 MG CAPSULE PO SCH ×3 (08:27→20:17)
[2017-01-05] MEDS: Lactobacillus 1 EACH CAP.SPRINK PO SCH ×2 (08:27→20:17)
[2017-01-05 10:47] LABS: Folate 11.5 ng/mL (7.0-31.4)
--- NOTE | 2017-01-05 15:34 | Internal Med Progress Note ---
Date of Encounter: 01/05/17 Time of Encounter: 15:25 - Assessment and plan (1) Abdominal wall cellulitis Current Visit: Yes Status: Acute Assessment and plan: January 05. Continue IV Ancef doxycycline and lactobacillus (2) Hyperuricemia Current Visit: No Status: Chronic Assessment and plan: January 05. Continue allopurinol (3) CKD (chronic kidney disease) stage 3, GFR 30-59 ml/min Current Visit: No Status: Chronic Assessment and plan: January 05. We will monitor renal indices (4) Hyperkalemia Current Visit: No Status: Acute Assessment and plan: January 05. Potassium improved to 5.8. Continue Kayexalate (5) Anemia Current Visit: Yes Status: Acute Assessment and plan: January 05. Anemia testing showed iron 29, transferrin saturation 8%, transferrin 274, ferritin 22, folate 11.5, and B12 549. I will order iron dextran IV. Qualifiers: Anemia type: unspecified type Qualified Code(s): D64.9 - Anemia, unspecified (6) Vitamin D deficiency Current Visit: Yes Status: Acute Assessment and plan: January 05. Vitamin D level was low at 8. Will start supplemental vitamin D. (7) Hypothyroidism Current Visit: Yes Status: Acute Assessment and plan: January 05. TSH was normal at 2.266 Qualifiers: Hypothyroidism type: unspecified Qualified Code(s): E03.9 - Hypothyroidism , unspecified - Subjective Interval history: January 05. She has no new complaints. - Constitutional Vitals: Temp Pulse Resp BP Pulse Ox 98.5 F 101 16 99/59 96 01/05/17 14:21 01/05/17 14:21 01/05/17 14:21 01/05/17 14:21 01/05/17 14:21 Exam: She is lying in bed wearing BiPAP. Bedside monitor shows 94% saturation. Heart is regular without murmurs gallops or ectopics. Abdominal wall cellulitis is not significantly changed. I reviewed her medications and lab results. % Internal Medicine: Result - Labs CBC & Chem 7: 01/05/17 06:39 01/05/17 06:39 Labs: Short CBC 01/05/17 Range/Units 06:39 WBC 5.7 (4.3-11.1) K/mcL Hgb 9.5 L (11.5-15.4) g/dL Hct 34.2 L (35.3-44.9) % Plt Count 212 (140-400) K/mcL Neutrophils # 4.1 (1.6-8.9) K/mcL BMP 01/05/17 06:39 Sodium 136 Potassium 5.8 H Chloride 96 L Carbon Dioxide 30 H BUN 34 H Creatinine 2.11 H Glucose 129 H Calcium 8.8 Liver Function 01/05/17 Range/Units 06:39 Total Bilirubin 0.4 (0.2-1.2) mg/dL AST 9 (5-34) Units/L ALT 11 (0-55) Units/L Alkaline Phosphatase 112 (38-126) Units/L Albumin 2.9 L (3.5-5.0) g/dL Consult Discharge Plan - Plan Referrals: NO,PCP [Primary Care Provider] - 1 week
[2017-01-05] MEDS: Cholecalciferol (D-3) 1,000 UNIT TABLET PO SCH (16:14)
[2017-01-05] MEDS ORDERED: IRON DEXTRAN COMPLEX IVPB ONE (17:00)
[2017-01-05] MEDS ORDERED: SODIUM CHLORIDE 0.9% IVPB ONE (17:00)
[2017-01-05 22:16] VITALS: BP 104/67
[2017-01-05] MEDS: *HR* Morphine 2 MG/ML SYRINGE IVP PRN (22:31)
[2017-01-06] MEDS: ceFAZolin 2,000 MG in D5% in Water 100 ML IVPB SCH ×2 (00:09→07:51)
[2017-01-06] MEDS: *HR* Morphine 2 MG/ML SYRINGE IVP PRN ×2 (03:08→07:41)
[2017-01-06 05:03] LABS: Basophils % 0.4 %; Eosinophils # 0.1 K/mcL (0.0-0.6); Eosinophils % 1.1 %; Hematocrit 32.2 % (35.3-44.9); Hemoglobin 9.1 g/dL (11.5-15.4); Immature Granulocytes % 0.4 % (0-4); Lymphocytes # 1.1 K/mcL (0.6-4.6); Lymphocytes % 15.5 %; Mean Corpuscular HGB Conc 28.3 g/dL (31.6-35.5); Mean Corpuscular Hemoglobin 28.2 pg (28.0-33.3); Mean Corpuscular Volume 99.7 fL (83.0-100.0); Mean Platelet Volume 10.8 fL (9.4-12.4); Monocytes # 0.5 K/mcL (0.0-1.3); Monocytes % 7.1 %; Neutrophils # 5.5 K/mcL (1.6-8.9); Nucleated Red Blood Cells 0.3 /100 WBC (0); Platelet Count 192 K/mcL (140-400); Red Blood Count 3.23 M/mcL (3.82-4.97); Red Cell Distribution Width 17.5 % (11.5-14.5); Segmented Neutrophils % 75.5 %
[2017-01-06 05:19] LABS: Potassium 5.7 mEq/L (3.5-4.5)
[2017-01-06] MEDS: Doxycycline 100 MG in 0.9 % Sodium Chloride Mini Bag 100 ML IVPB SCH (06:35)
[2017-01-06] MEDS: *HR* Enoxaparin 40 MG/0.4 ML SYRINGE SQ SCH (06:36)
[2017-01-06 06:52] LABS: Hypochromasia Present (Not Present)
[2017-01-06 06:57] LABS: Anisocytosis 1+ (Not Present); Platelet Estimate Normal (Normal); Stomatocytes 1+ (Not Present)
[2017-01-06] MEDS: ALLOPURINOL PO SCH (07:44)
[2017-01-06] MEDS: Gabapentin 100 MG CAPSULE PO SCH (07:44)
[2017-01-06] MEDS: Cholecalciferol (D-3) 1,000 UNIT TABLET PO SCH (07:45)
[2017-01-06] MEDS: Lactobacillus 1 EACH CAP.SPRINK PO SCH (07:46)
[2017-01-06] MEDS: Sennosides/Docusate Sodium TABLET PO SCH (08:01)
--- NOTE | 2017-01-06 09:12 | Discharge Summary ---
Date of Encounter: 01/06/17 Time of Encounter: 09:00 - Discharge Diagnosis (1) Abdominal wall cellulitis Priority: Primary Status: Acute (2) Hyperuricemia Priority: Secondary Status: Chronic (3) CKD (chronic kidney disease) stage 3, GFR 30-59 ml/min Priority: Secondary Status: Chronic (4) Hyperkalemia Priority: Secondary Status: Acute (5) Anemia Priority: Secondary Status: Acute Qualifiers: Anemia type: unspecified type Qualified Code(s): D64.9 - Anemia, unspecified (6) Vitamin D deficiency Priority: Secondary Status: Acute (7) Hypothyroidism Priority: Secondary Status: Acute Qualifiers: Hypothyroidism type: unspecified Qualified Code(s): E03.9 - Hypothyroidism , unspecified - Discharge Medications Prescriptions: cefaDROXil [Cefadroxil] 1 gm PO BID #14 tablet Cholecalciferol (D-3) [Vitamin D] 2,000 unit PO DAILY #60 tablet Doxycycline 100 mg PO BID #14 capsule HYDROcodone/Acet 10/325 mg [Wayland 10-325 mg] 1 each PO Q4H PRN #20 tablet PRN Reason: Pain Lactobacillus [Culturelle] 1 each PO BID #14 cap.sprink Sodium Polystyrene Sulfonate [Kayexalate] 30 gm PO DAILY 7 Days Home Medications: Omeprazole [PriLOSEC] 20 mg PO DAILY 02/23/16 [History] Oxygen 3 l NS AD 02/23/16 [History] MOM Conc [MILK OF MAGNESIA conc] 10 ml PO DAILY PRN #300 ud.liq 02/26/16 [Rx] Sennosides/Docusate Sodium [Senna Plus] 2 each PO DAILY 30 Days 02/26/16 [Rx] Albuterol Neb [Proventil Neb] 2.5 mg IH Q2H PRN #60 vial.neb 12/26/16 [Rx] Albuterol Sulfate [Ventolin Hfa] 18 gm IH Q4H PRN #1 hfa.aer.ad 12/26/16 [Rx] Allopurinol [Zyloprim 100 MG] 400 mg PO DAILY #120 tablet 12/26/16 [Rx] Fluticasone/Vilanterol [Breo Ellipta 100-25 Mcg INH] 1 each IH DAILY 30 Days [Rx] Gabapentin [Neurontin] 200 mg PO TID #30 capsule 12/26/16 [Rx] Metoprolol [Lopressor] 12.5 mg PO BID #30 tablet 12/26/16 [Rx] Montelukast [Singulair] 10 mg PO DAILY #30 tablet 12/26/16 [Rx] Theophylline Anhydrous [Theodur] 300 mg PO BID #60 tab.er.12h 12/26/16 [Rx] Tiotropium [Spiriva] 18 mcg IH DAILY #30 inh 12/26/16 [Rx] Cholecalciferol (D-3) [Vitamin D] 2,000 unit PO DAILY #60 tablet 01/06/17 [Rx] Doxycycline 100 mg PO BID #14 capsule 01/06/17 [Rx] HYDROcodone/Acet 10/325 mg [Wayland 10-325 mg] 1 each PO Q4H PRN #20 tablet [Rx] Lactobacillus [Culturelle] 1 each PO BID #14 cap.sprink 01/06/17 [Rx] Sodium Polystyrene Sulfonate [Kayexalate] 30 gm PO DAILY 7 Days 01/06/17 [Rx] cefaDROXil [Cefadroxil] 1 gm PO BID #14 tablet 01/06/17 [Rx] Allergies/Adverse Reactions: Allergies No Known Allergies Allergy (Verified 01/06/17 00:08) Procedures/tests Complete & Pending: Procedures Performed prior 72 hours Category Date Time Status EKG [ECG 12 lead ECG] [ECG] Stat Y 01/03/17 23:47 Completed Date of admission: 01/03/17 23:36 Primary care physician: Silvestre Kurtz CNP - Patient Status Disposition: Home, Self-Care Condition: Good Overall status at discharge: patient is progressing back to baseline - Discharge Instructions Follow Up With: Silvestre Kurtz CNP [Advanced Practice Nurse] - 1 week - Diet and Activity Activity: resume usual activities as tolerated Diet: advance to your usual diet Hospital course: Ms. Munoz is a 46 year old female who came to the hospital stating she had onset of abdominal pain with bilateral lower leg swelling proximately 2 days after being discharged from the hospital December 26. She did not seek medical attention immediately. She states she attempted to get a follow-up appointment as directed one week after discharge from the hospital but was told she could not be seen before January 11. She came to emergency room and was evaluated and felt to have cellulitis of the abdominal wall. She was admitted to [facility] for ongoing care needs. Initial orders were written by the emergency room physician. I saw her on January 04 and performed a history and physical. She was initially given vancomycin in the emergency room. I changed her to IV Ancef with doxycycline. Lactobacillus was also given. There was minimal visual change in the abdominal wall appearance during hospitalization. She remained afebrile. WBC remained normal. She will continue with oral antibiotics at discharge for an additional week until seen by her PCP. Anemia testing showed iron 29, transferrin saturation 8%, transferrin 274, ferritin 22, B12 549, and folate 11.5. She was given an infusion of iron dextran which was tolerated well. 24 hour urine collection for free cortisol was done to screen for Heather's disease. The results are pending at time of this dictation. Her PCP can follow -up on these results. She received Kayexalate daily during her hospitalization. Her potassium level had improved to 5.7 the day of discharge. She will continue to receive Kayexalate at discharge with a 7 day supply given on prescription. Her PCP can monitor potassium level. Her creatinine improved to 1.88 on the day of discharge from previous day of 2.11. She has known chronic kidney disease stage III. Vitamin D level returned significantly decreased at 8. She was started on vitamin D supplementation. TSH returned normal at 2.266. On January 06 I felt she was stable for discharge home. She will see her PCP within one week. He was given 20 pills of Wayland 10/325 for complaints of abdominal pain. I was told by the nursing staff she confided with other hospital staff she was buying medication off the street. - Time Spent with Patient Total time spent providing and/or coordinating discharge services: - Constitutional Vitals: Temp Pulse Resp BP Pulse Ox 98.5 F 114 17 104/67 94 01/05/17 22:13 01/05/17 22:13 01/06/17 03:45 01/05/17 22:13 01/06/17 06:12
[2017-01-06] MEDS: Albuterol 2.5 MG/3 ML NEBULIZER IH PRN (09:27)
[2017-01-10 02:32] LABS: Urine Collection Duration NOT PROVIDED hr; Urine Collection Volume NOT PROVIDED mL
== END 2017-01-06 10:45 | disposition home or self-care (01) ==
LOC: EMEROOPIK 20:00 → INPPIK 20:00
PROVIDERS: ADMIT Internal Medicine; ATTEND Internal Medicine